=== PATIENT | female | born 1985 | race Caucasian/White ===

== ENCOUNTER → 2016-06-21 | Outpatient (CLI) | payer BC, OTHER ==
[~2016-06-21] MED LIST: ALBU20IN INH; IBUP80TA PO; LIDOCAINE 2% INJ 100 MG/5 ML SDV (FOR ANES.) As Ordered ONE; PERCOCET PO; PRE-TAB3 PO; PROPOFOL 200 MG/20 ML VIAL As Ordered ONE; SPRI28TA PO
[2016-06-21] MEDS: LR 1,000 ML IV SCH ×2 (07:20→07:21)
--- NOTE | 2016-06-21 08:04 | ROOR ---
Patient Name: Jayne Llamas Procedure Date: 06/21/2016 7:35 AM Date of : 1985 Age: 30 Room: [facility] Gender: Female Note Status: Finalized Procedure: Upper GI endoscopy Indications: Epigastric abdominal pain, Suspected esophageal reflux Providers: Corby Larsen MD Referring MD: Nancy Gomez DO Requesting Provider: Medicines: Monitored Anesthesia Care Complications: No immediate complications. Procedure: Pre-Anesthesia Assessment: - Prior to the procedure, a History and Physical was performed, and patient medications and allergies were reviewed. The patient is competent. The risks and benefits of the procedure and the sedation options and risks were discussed with the patient. All questions were answered and informed consent was obtained. Patient identification and proposed procedure were verified by the physician, the nurse and the electrical products engineer in the procedure room. Mental Status Examination: alert and oriented. Airway Examination: normal oropharyngeal airway and neck mobility. CV Examination: regular rate and rhythm. Prophylactic Antibiotics: The patient does not require prophylactic antibiotics. Prior Anticoagulants: The patient has taken no previous anticoagulant or antiplatelet agents. ASA Grade Assessment: II - A patient with mild systemic disease. After reviewing the risks and benefits, the patient was deemed in satisfactory condition to undergo the procedure. The anesthesia plan was to use monitored anesthesia care (MAC). Immediately prior to administration of medications, the patient was re-assessed for adequacy to receive sedatives. The heart rate, respiratory rate, oxygen saturations, blood pressure, adequacy of pulmonary ventilation, and response to care were monitored throughout the procedure. The physical status of the patient was re-assessed after the procedure. The Endoscope was introduced through the mouth, and advanced to the second part of duodenum. The upper GI endoscopy was accomplished without difficulty. The patient tolerated the procedure well. Findings: The examined esophagus was normal. Localized mild inflammation characterized by an erosion was found at the gastroesophageal junction. This was a single small spot on one fold at the GE junction A large amount of food (residue) was found in the gastric fundus and in the gastric body. Normal mucosa was found on the lesser curvature of the stomach and in the gastric antrum. The first portion of the duodenum and second portion of the duodenum were normal. Impression: - Normal esophagus. - Esophageal mucosal changes were present, including erosions. Findings are suggestive of acute inflammation. - A large amount of food (residue) in the stomach. - Normal mucosa was found in the lesser curvature and in the antrum. - Normal first portion of the duodenum and second portion of the duodenum. - No specimens collected. Recommendation: - Discharge patient to home. - Resume regular diet. - Continue present medications. - Return to endoscopist in 2 weeks. Corby Larsen MD 06/21/2016 8:03:46 AM Number of Addenda: 0 Note Initiated On: 06/21/2016 7:35 AM Estimated Blood Loss: Estimated blood loss: none.
[2016-06-21 08:25] VITALS: BP 122/58
== END ==
LOC: M OPP 06:50
PROVIDERS: ATTEND Surgery
DX: K22.10 Ulcer of esophagus without bleeding (principal); R10.13 Epigastric pain; R12 Heartburn; K21.9 Gastro-esophageal reflux disease without esophagitis; J45.909 Unspecified asthma, uncomplicated; F17.200 Nicotine dependence, unspecified, uncomplicated; Z88.1 Allergy status to other antibiotic agents; Z91.040 Latex allergy status; Z88.7 Allergy status to serum and vaccine; Z91.011 Allergy to milk products; Z79.899 Other long term (current) drug therapy

== ENCOUNTER 2016-09-01 15:04 | Emergency (ER) | payer BC, OTHER ==
[~2016-09-01] VITALS: Ht 162.6 cm; Wt 104.3 kg
[~2016-09-01 15:04] MED LIST changes: -LIDOCAINE 2% INJ 100 MG/5 ML SDV (FOR ANES.) As Ordered ONE; -PROPOFOL 200 MG/20 ML VIAL As Ordered ONE
[2016-09-01] MEDS ORDERED: ALLE12TA31 PO (15:15)
[2016-09-01] MEDS ORDERED: ONDANSETRON 4MG/2ML VIAL (J2405) IV ONE (16:15)
[2016-09-01] MEDS ORDERED: KETOROLAC 30 MG/ML VIAL (J1885) IV ONE (16:15)
[2016-09-01 16:54] LABS: BASO % 0.4 % (0.0-1.0); EOS # 0.2 K/mm3 (0.0-0.50); EOS % 2.1 % (0.0-3.0); LARGE UNSTAINED CELL # 0.1 K/mm3 (0.0-0.4); LARGE UNSTAINED CELL % 0.9 % (0.0-4.0); LYMPH # 1.8 K/mm3 (1.5-6.5); LYMPH % 19.5 % (24.0-44.0); MEAN CORPUSCULAR HEMOGLOBIN 30.5 pg (27.0-33.0); MEAN CORPUSCULAR HGB CONC 34.3 g/dl (32.0-36.5); MONO # 0.3 K/mm3 (0.0-0.8); MONO % 3.4 % (0.0-5.0); NEUTROPHILS # 6.3 K/mm3 (1.8-7.7); NEUTROPHILS % 73.7 % (36.0-66.0); PLATELET COUNT, AUTOMATED 219 k/mm3 (150-450); RED CELL DISTRIBUTION WIDTH 12.4 % (11.5-14.5); WHITE BLOOD COUNT 8.6 K/mm3 (4.0-10.0)
[2016-09-01] MEDS ORDERED: GASTROGRAFIN SOLUTION 30ML (Q9963) As Ordered ONE (17:09)
[2016-09-01] MEDS ORDERED: GASTROGRAFIN SOLUTION 30ML (Q9963) PO ONE ×2 (17:15→17:45)
[2016-09-01 17:18] LABS: ALBUMIN 3.6 GM/DL (3.2-5.2); ALKALINE PHOSPHATASE 74 U/L (45-117); ALT/SGPT 22 U/L (12-78); AMYLASE 43 U/L (25-115); ANION GAP 10 MEQ/L (8-16); AST/SGOT 11 U/L (15-37); BILIRUBIN,DIRECT 0.1 MG/DL (0.0-0.2); BILIRUBIN,TOTAL 0.4 MG/DL (0.2-1.0); BLOOD UREA NITROGEN 6 MG/DL (7-18); CALCIUM LEVEL 8.7 MG/DL (8.5-10.1); CARBON DIOXIDE LEVEL 24 MEQ/L (21-32); CHLORIDE LEVEL 106 MEQ/L (98-107); CREATININE FOR GFR 0.66 MG/DL (0.55-1.02); GLOMERULAR FILTRATION RATE > 60.0 (>60); GLUCOSE, FASTING 88 MG/DL (70-105); POTASSIUM SERUM 3.7 MEQ/L (3.5-5.1); SODIUM LEVEL 140 MEQ/L (136-145); TOTAL PROTEIN 6.6 GM/DL (6.4-8.2)
--- NOTE | 2016-09-01 17:20 | REP ---
LIMITED ABDOMINAL ULTRASOUND (GALLBLADDER): 09/01/2016: Clinical history: Right upper quadrant pain. Comparison: 10/28/2015. Findings: Liver is homogeneous in echotexture. There is no focal hepatic mass, intrahepatic biliary dilatation or perihepatic ascites. Gallbladder is only partially filled as the patient drank coffee a few hours ago. There is no definite stone, sludge or pericholecystic fluid. No mass and no sonographic Hayden sign present. Common duct is 4.3 mm. Pancreas is limited evaluation due to bowel gas shadowing. Right kidney shows a length 12.2 x 5.6 x 4.2 cm without stone or hydronephrosis. Impression: 1. Liver, gallbladder, visible portion of the pancreas, common duct at 4.3 mm and the right kidney were unremarkable. Nothing acute by ultrasound. Signed by Merlin Prieto MD 09/01/2016 05:27 P
[2016-09-01] MEDS ORDERED: ISOVUE-370 76% 100ML VIAL (Q9967) As Ordered ONE (18:35)
--- NOTE | 2016-09-01 20:00 | REPUSA ---
CT of the abdomen and pelvis with contrast Clinical statement: Pain. Technique: Multiple axial CT images were obtained from the base of the lungs through the floor of the pelvis utilizing 5 mm axial slices after administration of oral and nonionic intravenous contrast. C oronal and sagittal reconstructions were also obtained. Comparison: 07/29/2010. Findings: Chest: The visualized lung bases are clear. Abdomen: The liver, spleen, pancreas, kidneys, gallbladder, and adrenal glands are unremarkable. The aorta is within normal limits. There is no evidence of abdominal lymphadenopathy or ascites. Pelvis: The bowel is unremarkable, with no obstructive or inflammatory changes. The appendix is vaibhav l. The urinary bladder is within normal limits. The other pelvic structures appear grossly intact. Th ere is no evidence of pelvic lymphadenopathy or ascites. Bones: There are no suspicious osseous abnormalities seen. Impression: Unremarkable CT examination of the abdomen and pelvis. No acute findings.
[2016-09-01] MEDS ORDERED: MACR100C3 PO (20:11)
[2016-09-01] MEDS ORDERED: ZOFR4TAB3 PO (20:11)
[2016-09-01 20:18] VITALS: BP 136/79
== END 2016-09-01 20:20 | disposition home or self-care (01) ==
LOC: M ED 16:13
DX: N39.0 Urinary tract infection, site not specified (principal); J45.909 Unspecified asthma, uncomplicated; E73.9 Lactose intolerance, unspecified; Z79.899 Other long term (current) drug therapy; Z91.040 Latex allergy status; Z88.0 Allergy status to penicillin; Z88.7 Allergy status to serum and vaccine
CPT/HCPCS: 74177; 76705; 80048; 80076; 81001; 81025; 82150; 83690; 85025; 86140; 96374; 96375; 99283; J1885; J2405; Q9963; Q9967

== ENCOUNTER → 2016-09-16 | Outpatient (REF) | payer OTHER ==
[~2016-09-16] MED LIST changes: +ALLE12TA31 PO; +MACR100C3 PO; +ZOFR4TAB3 PO
[2016-09-16 12:22] LABS: ALBUMIN 3.6 GM/DL (3.2-5.2); ALBUMIN/GLOBULIN RATIO 1.13 (1.00-1.93); ALKALINE PHOSPHATASE 72 U/L (45-117); ALT/SGPT 37 U/L (12-78); ANION GAP 10 MEQ/L (8-16); AST/SGOT 22 U/L (15-37); BILIRUBIN,TOTAL 0.5 MG/DL (0.2-1.0); BLOOD UREA NITROGEN 6 MG/DL (7-18); CALCIUM LEVEL 8.5 MG/DL (8.5-10.1); CARBON DIOXIDE LEVEL 25 MEQ/L (21-32); CHLORIDE LEVEL 107 MEQ/L (98-107); CHOLESTEROL LEVEL 170 MG/DL (<200); CREATININE FOR GFR 0.67 MG/DL (0.55-1.02); GLOMERULAR FILTRATION RATE > 60.0 (>60); GLUCOSE, FASTING 85 MG/DL (70-105); POTASSIUM SERUM 4.2 MEQ/L (3.5-5.1); SODIUM LEVEL 142 MEQ/L (136-145); TOTAL PROTEIN 6.8 GM/DL (6.4-8.2); TRIGLYCERIDES LEVEL 58 MG/DL (<150)
[2016-09-16 12:24] LABS: VITAMIN B12 LEVEL 188 PG/ML (247-911)
== END ==
LOC: M SFHCPLAZ 07:58
PROVIDERS: ATTEND Family Medicine
DX: E66.9 Obesity, unspecified (principal); E55.9 Vitamin D deficiency, unspecified; E53.8 Deficiency of other specified B group vitamins

== ENCOUNTER → 2016-09-28 | Outpatient (REF) | payer OTHER, BC | LOC: M SFHCPLAZ 15:30 | PROVIDERS: ATTEND Family Medicine | DX: R25.2 Cramp and spasm (principal) ==

== ENCOUNTER → 2016-10-05 | Outpatient (CLI) | payer BC, OTHER ==
--- NOTE | 2016-10-07 17:56 | ECHO ---
DATE OF PROCEDURE: 10/05/2016 REFERRING PHYSICIAN: Dr. Isela Avelar PATIENT LOCATION: Outpatient. REASON FOR ECHOCARDIOGRAM: Heart murmur. 2D MEASUREMENTS: IVS: 1.2 cm LV: 3.7 cm LVPW: 1.2 cm LA: 3.7 cm Aorta: 2.5 cm IVC: 1.5 cm DOPPLER MEASUREMENTS: Peak velocity across the aortic valve: 1.9 m/s Peak velocity across the LVOT: 1.1 m/s Mitral E: 1.0, mitral A: 0.64 with a ratio of 1.7. Maximum tricuspid valve velocity: 2.25 m/s 2D COMMENTS: 1. Normal left ventricular size, wall thickness, and normal left ventricular systolic function. Normal global left ventricular systolic function. Left ventricular systolic ejection fraction is estimated at 65- 70%. 2. The aortic valve appeared to be normal in limited views. Normal mitral valve, tricuspid valve, and pulmonic valve. The proximal artery braches appear to be normal. 3. The inferior vena cava was normal in size, central venous pressure is most likely normal. DOPPLER: Doppler detects mild mitral regurgitation, trace to mild tricuspid regurgitation. The calculated pulmonary artery systolic pressure varies between 25 to 30 mmHg. Assessment of the left ventricular diastolic function was normal. There was mildly increased velocity across the aortic valve but no significant stenosis. IMPRESSION: 1. Normal global left ventricular systolic and diastolic function. 2. Trace to mild mitral regurgitation. 3. Trace to mild tricuspid regurgitation. 4. The velocity across the aortic valve was minimally elevated but no definitive stenosis noted at this present time. This may be responsible to the heart murmur heard on the examination.
== END ==
LOC: M CARPUL 15:12
PROVIDERS: ATTEND Family Medicine
DX: R01.1 Cardiac murmur, unspecified (principal)

== ENCOUNTER → 2016-10-12 | Outpatient (REF) | payer BC, OTHER | LOC: M SFHCPLAZ 15:45 | PROVIDERS: ATTEND Family Medicine | DX: Z20.1 Contact with and (suspected) exposure to tuberculosis (principal) ==

== ENCOUNTER → 2016-12-22 | Outpatient (REF) | payer OTHER ==
[~2016-12-22] MED LIST changes: -MACR100C3 PO; +MACR100C43 PO
== END ==
LOC: M SFHCPLAZ 08:38
PROVIDERS: ATTEND Family Medicine
DX: M25.50 Pain in unspecified joint (principal); E53.8 Deficiency of other specified B group vitamins

== ENCOUNTER → 2017-02-10 | Outpatient (CLI) | payer BC ==
--- NOTE | 2017-02-10 13:02 | REP ---
PELVIC ULTRASOUND: Real-time sonographic evaluation of the pelvis performed utilized transabdominal and endovaginal technique. Urinary bladder is essentially collapsed and empty. Uterus measures 10.0 x 4.0 x 5.2 cm. Endometrial thickness is 8 mm. Right ovary measures 3.3 x 2.3 x 2.3 cm and contains a dominant follicle 1.7 cm in maximum diameter. Left ovary measures 2.8 x 1.5 x 2.3 cm with two follicles, each measuring about 1 cm in diameter. There is no adnexal mass or free fluid. IMPRESSION: Negative pelvic ultrasound as discussed in detail above.
== END ==
LOC: M WHC 10:17
PROVIDERS: ATTEND Advanced Practice Midwife
DX: N94.6 Dysmenorrhea, unspecified (principal)

== ENCOUNTER → 2017-02-24 | Outpatient (REF) | payer OTHER | LOC: M SFHCPLAZ 15:58 | PROVIDERS: ATTEND Family Medicine | DX: N30.00 Acute cystitis without hematuria (principal) ==

== ENCOUNTER → 2017-10-17 | Outpatient (CLI) | payer BC | LOC: M WHC 09:40 | DX: R10.11 Right upper quadrant pain (principal); K82.4 Cholesterolosis of gallbladder | CPT/HCPCS: 76705 ==

== ENCOUNTER → 2017-10-26 | Outpatient (REF) | payer OTHER, BC ==
[2017-10-31 14:16] LABS: HPV HYBRID CAPTURE II Negative (Negative)
== END ==
LOC: M LAB REF 19:25
DX: Z01.419 Encounter for gynecological examination (general) (routine) without abnormal findings (principal); Z11.51 Encounter for screening for human papillomavirus (HPV)

== ENCOUNTER → 2017-10-31 | Outpatient (REF) | payer OTHER ==
[2017-10-31 09:53] LABS: BASO % 0.6 % (0.0-1.0); EOS # 0.1 10^3/uL (0.0-0.50); HEMATOCRIT 44.6 % (36.0-47.0); IMMATURE GRANULOCYTE % 0.3 % (0-3.0); LYMPH # 2.1 10^3/uL (1.5-4.5); LYMPH % 30.4 % (24.0-44.0); MEAN CORPUSCULAR HEMOGLOBIN 30.3 pg (27.0-33.0); MEAN CORPUSCULAR HGB CONC 33.6 g/dl (32.0-36.5); MEAN CORPUSCULAR VOLUME 90.1 fl (80.0-96.0); MONO # 0.5 10^3/uL (0.0-0.8); MONO % 6.6 % (0.0-5.0); NEUTROPHILS # 4.3 10^3/uL (1.8-7.7); NEUTROPHILS % 61.1 % (36.0-66.0); PLATELET COUNT, AUTOMATED 257 10^3/uL (150-450); RED BLOOD COUNT 4.95 10^6/uL (4.00-5.40); RED CELL DISTRIBUTION WIDTH 12.3 % (11.5-14.5)
[2017-10-31 10:24] LABS: CPK CREATINE PHOSPHOKINASE 108 U/L (26-192)
[2017-10-31 10:24] LABS: C REACTIVE PROTEIN QUANTITATIV 0.57 MG/DL (0.00-0.30)
[2017-10-31 10:40] LABS: ERYTHROCYTE SEDIMENTATION RATE 5 mm/hr (0-20)
== END ==
LOC: M SFHCPLAZ 09:06
DX: M54.2 Cervicalgia (principal); R22.1 Localized swelling, mass and lump, neck

== ENCOUNTER → 2017-11-06 | Outpatient (REF) | payer OTHER ==
[2017-11-06 17:47] LABS: ANTI-STREPTOLYSIN O QUANT 29.9 IU/ML (<214.0)
[2017-11-06 17:47] LABS: C REACTIVE PROTEIN QUANTITATIV 0.43 MG/DL (0.00-0.30)
[2017-11-09 00:07] LABS: ANA (HEP2) Negative (.); Lyme Disease IgG/IgM Antibodie <0.91 ISR (0.00-0.90); Lyme Disease IgM Ab Quantitati <0.80 index (0.00-0.79)
== END ==
LOC: M SFHCPLAZ 13:48
DX: M79.3 Panniculitis, unspecified (principal)

== ENCOUNTER → 2017-11-15 | Outpatient (REF) | payer OTHER ==
[2017-11-15 13:11] LABS: 1 HR GLUCOSE 116 MG/DL (LESS THAN 199)
[2017-11-15 13:12] LABS: 2 HR GLUCOSE 102 MG/DL (LESS THAN 140)
[2017-11-15 13:15] LABS: GLUCOSE, FASTING 87 MG/DL (70-100)
[2017-11-18 00:08] LABS: INSULIN FREE 11 uU/mL (.); INSULIN TOTAL2 11 uU/mL (.)
== END ==
LOC: M LABDRAWP 11:38
DX: R63.5 Abnormal weight gain (principal)
CPT/HCPCS: 82951

== ENCOUNTER → 2017-11-24 | Outpatient (CLI) | payer BC, OTHER ==
[~2017-11-24] MED LIST changes: -ALBU20IN INH; -ALLE12TA31 PO; -IBUP80TA PO; -MACR100C43 PO; -PERCOCET PO; -PRE-TAB3 PO; +PROHANCE 279.3MG/ML 15ML VIAL (A9576) As Ordered; +PROHANCE 279.3MG/ML 5ML VIAL (A9576) As Ordered; -SPRI28TA PO; -ZOFR4TAB3 PO
== END ==
LOC: M RAD 07:31
DX: R42 Dizziness and giddiness (principal); G93.9 Disorder of brain, unspecified
CPT/HCPCS: A9576

== ENCOUNTER → 2017-11-30 | Outpatient (CLI) | payer BC, OTHER ==
[2017-11-30 21:02] LABS: RHEUMATOID FACTOR QUANT < 10.0 IU/ML (<15.0)
[2017-11-30 21:43] LABS: ERYTHROCYTE SEDIMENTATION RATE 6 mm/hr (0-20)
[2017-11-30 22:28] LABS: FOLATE 23.2 NG/ML (>5.4)
[2017-11-30 22:28] LABS: VITAMIN B12 LEVEL 476 PG/ML (247-911)
[2017-12-05 12:01] LABS: DRVV SCREEN 39.4 SEC; PTT LUPUS TYPE ANTICOAG SCREEN 0.9 (0-1.2)
[2017-12-07 00:20] LABS: ANCA-ATYPICAL <1:20 titer (Neg:<1:20); ANTINUCLEAR ANTIBODIES DIRECT Negative (Negative); CARDIOLIPIN IGA ANTIBODY <9 APL U/mL (0-11); CARDIOLIPIN IGG ANTIBODY <9 GPL U/mL (0-14); CARDIOLIPIN IGM ANTIBODY 11 MPL U/mL (0-12); CYTOPLASMIC NEUTROP AB ANCA-C <1:20 titer (Neg:<1:20); PERINUCLEAR AB ANCA-P <1:20 titer (Neg:<1:20); SJOGREN'S ANTI SS-A <0.2 AI (0.0-0.9); SJOGREN'S ANTI SS-B <0.2 AI (0.0-0.9)
[2017-12-08 11:32] LABS: ANGIOTENSIN 1 CONVERTING ENZYM 40 U/L
[2017-12-08 13:34] LABS: HERPES ZOSTER, VARICELLA IgG 802 index (Immune >165)
[2017-12-08 13:34] LABS: JC VIRUS DNA PCR WHOLE BLOOD Negative (Negative)
== END ==
LOC: M WUC 16:58
DX: G35 Multiple sclerosis (principal)
CPT/HCPCS: 82746

== ENCOUNTER → 2017-12-29 | Outpatient (CLI) | payer BC, OTHER ==
[~2017-12-29] MED LIST changes: +E-Z-GAS II EFFERVESCENT PACKET (SODIUM BICARB./CITRIC ACID/SIMETHICONE) As Ordered; +E-Z-HD 98% w/w 340GM SUSP BTL As Ordered; +E-Z-PAQUE 96% w/w SUSP 176GM BTL As Ordered; -PROHANCE 279.3MG/ML 15ML VIAL (A9576) As Ordered; -PROHANCE 279.3MG/ML 5ML VIAL (A9576) As Ordered
== END ==
LOC: M RAD 10:06
DX: K21.9 Gastro-esophageal reflux disease without esophagitis (principal)
CPT/HCPCS: 74241

== ENCOUNTER → 2018-01-03 | Outpatient (CLI) | payer BC, OTHER ==
[~2018-01-03] MED LIST changes: -E-Z-GAS II EFFERVESCENT PACKET (SODIUM BICARB./CITRIC ACID/SIMETHICONE) As Ordered; -E-Z-HD 98% w/w 340GM SUSP BTL As Ordered; -E-Z-PAQUE 96% w/w SUSP 176GM BTL As Ordered; +LIDOCAINE 1% SDV INJ 30 ML VIAL As Ordered; +MIDAZOLAM INJ 2 MG/2 ML VIAL (J2250) As Ordered; +diphenhydrAMINE INJ 50MG/ML VIAL (J1200) As Ordered; +fentaNYL 100 MCG/2 ML INJECTION (J3010) As Ordered
[2018-01-03 17:24] LABS: CSF RBC < 2 10^3/uL (<2); CSF WBC 8 /uL (0-10)
[2018-01-03 17:25] LABS: APPEARANCE, CSF CLEAR (CLEAR); COLOR, CSF COLORLESS (COLORLESS); CSF DIFF IF INDICATED? NO (NO); CSF TUBE# CELL CNT TUBE 3
[2018-01-03 17:41] LABS: CSF TUBE# GLU TUBE 1; CSF TUBE# TP TUBE 1; GLUCOSE CSF 48 MG/DL (40-75); TOTAL PROTEIN,CSF 35.6 MG/DL (15-45)
[2018-01-08 11:00] LABS: OLIGOCLONAL BANDS, CSF Faint bands detected (No Bands)
[2018-01-09 00:06] LABS: IMMUNOGLOBULIN G CSF 7.8 mg/dL (0.0-8.6)
== END ==
LOC: M PAIN 13:00
DX: G35 Multiple sclerosis (principal); L30.9 Dermatitis, unspecified; J45.990 Exercise induced bronchospasm; Z88.1 Allergy status to other antibiotic agents; Z88.7 Allergy status to serum and vaccine; Z88.8 Allergy status to other drugs, medicaments and biological substances; Z91.040 Latex allergy status; Z91.013 Allergy to seafood; Z86.69 Personal history of other diseases of the nervous system and sense organs
CPT/HCPCS: J1200

== ENCOUNTER 2018-01-04 19:48 | Emergency (ER) | payer BC, OTHER ==
[2018-01-04] MEDS: KETOROLAC 30 MG/ML VIAL (J1885) IV (22:01)
[2018-01-04 22:15] LABS: ANION GAP 8 MEQ/L (8-16); BLOOD UREA NITROGEN 7 MG/DL (7-18); C REACTIVE PROTEIN QUANTITATIV 0.46 MG/DL (0.00-0.30); CALCIUM LEVEL 8.7 MG/DL (8.5-10.1); CARBON DIOXIDE LEVEL 26 MEQ/L (21-32); CHLORIDE LEVEL 107 MEQ/L (98-107); CREATININE FOR GFR 0.72 MG/DL (0.55-1.30); GLOMERULAR FILTRATION RATE > 60.0 (>60); GLUCOSE, FASTING 90 MG/DL (70-100); POTASSIUM SERUM 3.9 MEQ/L (3.5-5.1); SODIUM LEVEL 141 MEQ/L (136-145)
[2018-01-04 22:17] LABS: BASO % 0.5 % (0.0-1.0); EOS # 0.1 10^3/uL (0.0-0.50); EOS % 0.7 % (0.0-3.0); HEMATOCRIT 45.8 % (36.0-47.0); HEMOGLOBIN 15.5 g/dl (12.0-15.5); IMMATURE GRANULOCYTE % 0.2 % (0-3.0); LYMPH # 3.3 10^3/uL (1.5-4.5); LYMPH % 39.2 % (24.0-44.0); MEAN CORPUSCULAR HEMOGLOBIN 30.1 pg (27.0-33.0); MEAN CORPUSCULAR HGB CONC 33.8 g/dl (32.0-36.5); MEAN CORPUSCULAR VOLUME 88.9 fl (80.0-96.0); MONO # 0.6 10^3/uL (0.0-0.8); MONO % 7.1 % (0.0-5.0); NEUTROPHILS # 4.4 10^3/uL (1.8-7.7); NEUTROPHILS % 52.3 % (36.0-66.0); PLATELET COUNT, AUTOMATED 306 10^3/uL (150-450); RED BLOOD COUNT 5.15 10^6/uL (4.00-5.40); RED CELL DISTRIBUTION WIDTH 11.9 % (11.5-14.5); WHITE BLOOD COUNT 8.3 10^3/uL (4.0-10.0)
[2018-01-04] MEDS ORDERED: ISOVUE-370 76% 100ML VIAL (Q9967) As Ordered (22:17)
[2018-01-04 23:51] LABS: ERYTHROCYTE SEDIMENTATION RATE 8 mm/hr (0-20)
== END 2018-01-05 00:23 | disposition home or self-care (01) ==
LOC: M ED 01-05 00:23
DX: G97.1 Other reaction to spinal and lumbar puncture (principal); M51.27 Other intervertebral disc displacement, lumbosacral region; G35 Multiple sclerosis
CPT/HCPCS: Q9967

== ENCOUNTER → 2018-03-14 | Outpatient (REF) | payer OTHER | LOC: M SFHCPLAZ 15:10 | DX: R35.0 Frequency of micturition (principal) | CPT/HCPCS: 87086 ==

== ENCOUNTER → 2018-06-11 | Outpatient (REF) | payer OTHER ==
[~2018-06-11] MED LIST changes: +ALBU20IN INH; +ALBU83IN INH; +ALLE12TA31 PO; +FLON1SPR; +IBUP80TA PO; -LIDOCAINE 1% SDV INJ 30 ML VIAL As Ordered; +MACR100C43 PO; +METH1TAB40; -MIDAZOLAM INJ 2 MG/2 ML VIAL (J2250) As Ordered; +MULT1TAB18 PO; +PERCOCET PO; +PRE-TAB3 PO; +SPRI28TA PO; +VITATAB11 PO; +ZOFR4TAB14 PO; -diphenhydrAMINE INJ 50MG/ML VIAL (J1200) As Ordered; -fentaNYL 100 MCG/2 ML INJECTION (J3010) As Ordered
[2018-06-11 13:25] LABS: FREE T4 0.98 NG/DL (0.76-1.46); THYROID STIMULATING HORMONE 0.63 uIU/ML (0.358-3.740)
== END ==
LOC: M LABDRAWP 12:11
PROVIDERS: ATTEND Advanced Practice Midwife
DX: N92.0 Excessive and frequent menstruation with regular cycle (principal)

== ENCOUNTER → 2018-06-19 | Outpatient (CLI) | payer BC, OTHER ==
--- NOTE | 2018-06-19 19:23 | REP ---
Pelvic ultrasound including transabdominal, endovaginal and Doppler ultrasound assessment: The bladder is adequately distended. The The uterus is anteverted and normal size measuring 8.9 x 6.2 x 5.5 cm. The endometrium is not thickened measuring 11.6 mm. The myometrium is homogeneous and unremarkable. The right ovary is normal size measuring 3.5 x 2.3 by 2.9 cm. There is no dominant right ovarian mass or cyst. The left ovary is normal size measuring 3.4 x 2.4 x 3.5 cm. There is no dominant left ovarian mass or cyst. There is no free fluid in the pelvis. There is vascular flow in both ovaries. The Doppler resistive index of the parenchymal arteries of the right ovary is 0.42 and of the left ovary is 0.41. Impression: Essentially negative pelvic ultrasound. Electronically Signed by Eric Weeks MD 06/19/2018 07:14 P
== END ==
LOC: M RAD 16:38
PROVIDERS: ATTEND Advanced Practice Midwife
DX: N92.0 Excessive and frequent menstruation with regular cycle (principal)

== ENCOUNTER → 2018-06-30 | Outpatient (CLI) | payer BC, OTHER ==
--- NOTE | 2018-07-01 09:01 | REP ---
LEFT FOOT, FOUR VIEWS: There is no evidence of an acute fracture, dislocation or intrinsic bone disease. IMPRESSION: No fracture or dislocation. Electronically Signed by Eric Alexandre MD 07/01/2018 06:47 P
== END ==
LOC: M WUC 13:59
PROVIDERS: ATTEND Physician Assistant
DX: M79.672 Pain in left foot (principal)

== ENCOUNTER 2018-07-12 11:58 | Inpatient (IN) | payer BC, OTHER ==
[~2018-07-12] VITALS: Ht 162.6 cm; Wt 109.0 kg
[2018-07-12] MEDS ORDERED: CALC600T57 PO (12:14)
[2018-07-12] MEDS ORDERED: ASCO25TA PO (12:15)
--- NOTE | 2018-07-12 12:51 | REP ---
CT Head without contrast HISTORY: Infarction COMPARISON: 01/04/2018 A small area of decreased attenuation is present in the periventricular white matter of the the right temporal lobe. This represents encephalomalacia. There is no intraparenchymal hemorrhage, acute infarct, mass or midline shift. The ventricular system is normal in appearance. There is no extra cerebral collection. There is no fracture. The visualized sinuses are clear. IMPRESSION: Right temporal lobe encephalomalacia. Electronically Signed by Juan A Mckinney MD 07/12/2018 12:43 P
[2018-07-12 13:22] LABS: BASO # 0.1 10^3/uL (0.0-0.2); BASO % 0.7 % (0.0-1.0); EOS # 0.1 10^3/uL (0.0-0.50); EOS % 1.3 % (0.0-3.0); HEMATOCRIT 44.1 % (36.0-47.0); LYMPH # 2.6 10^3/uL (1.5-4.5); MEAN CORPUSCULAR HEMOGLOBIN 30.1 pg (27.0-33.0); MEAN CORPUSCULAR VOLUME 88.6 fl (80.0-96.0); MONO # 0.6 10^3/uL (0.0-0.8); MONO % 6.7 % (0.0-5.0); NEUTROPHILS # 5.2 10^3/uL (1.8-7.7); NEUTROPHILS % 61.1 % (36.0-66.0); PLATELET COUNT, AUTOMATED 266 10^3/uL (150-450); RED BLOOD COUNT 4.98 10^6/uL (4.00-5.40); WHITE BLOOD COUNT 8.5 10^3/uL (4.0-10.0)
[2018-07-12 13:52] LABS: INR 0.93; PROTHROMBIN TIME 12.6 SECONDS (12.1-14.4)
[2018-07-12 13:53] LABS: PARTIAL THROMBOPLASTIN TIME 28.1 SECONDS (25.4-37.6)
--- NOTE | 2018-07-12 13:54 | REP ---
AP PORTABLE CHEST: 07/12/2018. COMPARISON: CT angio chest 10/30/2017, chest x-ray 05/15/2007. CLINICAL HISTORY: CVA. FINDINGS: Lungs are well inflated and without infiltrate, effusion, atelectasis, or mass. The heart, mediastinal and hilar contours are grossly unremarkable. Airway and aorta unremarkable. No free air. IMPRESSION: 1. Negative portable chest. Electronically Signed by Merlin Prieto MD 07/12/2018 07:29 P
[2018-07-12 13:59] LABS: BLOOD UREA NITROGEN 9 MG/DL (7-18); CALCIUM LEVEL 9.1 MG/DL (8.5-10.1); CARBON DIOXIDE LEVEL 28 MEQ/L (21-32); CHLORIDE LEVEL 103 MEQ/L (98-107); CPK CREATINE PHOSPHOKINASE 113 U/L (26-192); GLOMERULAR FILTRATION RATE > 60.0 (>60); GLUCOSE, FASTING 81 MG/DL (70-100); POTASSIUM SERUM 3.8 MEQ/L (3.5-5.1); SODIUM LEVEL 139 MEQ/L (136-145)
[2018-07-12 14:00] LABS: CK-MB VALUE MASS < 1.0 NG/ML (<3.6); MB/CK RELATIVE INDEX 0.88 (< OR =4); TROPONIN I < 0.02 NG/ML (< 0.10)
[2018-07-12] MEDS ORDERED: ALPRAZolam 0.5 MG TAB PO ONE (14:45)
[2018-07-12] MEDS ORDERED: methylPREDNISolone INJ 125 MG/2 ML VIAL (J2930) IV ONE (14:45)
[2018-07-12] MEDS ORDERED: ACETAMINOPHEN TAB 650MG DOSE (2X325MG) PO ONE (14:45)
[2018-07-12] MEDS ORDERED: methylPREDNISolone 1,000 MG, VIAL MATE ADAPTER 1 EACH in D5W 250 ML IV ONE (15:00)
[2018-07-12] MEDS ORDERED: PROHANCE 279.3MG/ML 5ML VIAL (A9576) As Ordered ONE (17:48)
[2018-07-12] MEDS ORDERED: PROHANCE 279.3MG/ML 15ML VIAL (A9576) As Ordered ONE (17:49)
--- NOTE | 2018-07-12 18:11 | ECGEPIP ---
Stationary ECG Study [facility] - ED Test Date: 2018-07-12 Pat Name: MAX GRIER Department: Room: - Gender: F Clutch Specialist: sb : 1985 Requested By: CLARITA Allen Order Number: [id number] Reading MD: Dieog Reeves Measurements Intervals [place] Rate: 87 P: 53 CA: 111 QRS: 44 QRSD: 96 T: 16 QT: 377 QTc: 456 Interpretive Statements SINUS RHYTHM WITH SINUS ARRHYTHMIA WITH SHORT CA INTERVAL INCOMPLETE RIGHT BUNDLE BRANCH BLOCK SIMILAR TO 10/30/17 Electronically Signed On 07-12-2018 18:10:57 EST by Diego eReves
--- NOTE | 2018-07-12 18:52 | REP ---
MR BRAIN WITHOUT AND WITH CONTRAST: HISTORY: Multiple sclerosis. CONTRAST: ProHance 20 mL COMPARISON: 11/24/2017. Multiple small areas of increased signal intensity on T2-weighted images are present in the periventricular and subcortical white matter. Additional areas of increased signal intensity are present in the corpus callosum and right cerebellum. These are unchanged compared to the previous study. There are no new areas of abnormal signal intensity. There is no intraparenchymal hemorrhage, infarct, mass or midline shift. The sella turcica is partially empty. There is no abnormal enhancement. The ventricular system is normal in appearance. There is no extracerebral collection. The sinuses are clear. IMPRESSION: The above findings are consistent with multiple sclerosis that are unchanged compared to the previous study. Electronically Signed by Juan A Mckinney MD 07/12/2018 06:54 P
[2018-07-12] MEDS ORDERED: ONDANSETRON 4MG/2ML VIAL (J2405) IV ONE (19:00)
[2018-07-12] MEDS ORDERED: KETOROLAC 30 MG/ML VIAL (J1885) IV ONE (19:00)
[2018-07-12] MEDS ORDERED: MOME50SP2 (20:08)
[2018-07-12] MEDS ORDERED: METH1TAB40 PO (20:08)
[2018-07-12] MEDS ORDERED: CALCCHW18 PO (20:08)
[2018-07-12] MEDS ORDERED: VITACHTA PO (20:08)
[2018-07-12] MEDS ORDERED: [UNRECOGNIZED DRUG - OTHER] PO (20:08)
[2018-07-12] MEDS ORDERED: PROAAER10 INH (20:08)
[2018-07-12] MEDS ORDERED: COPA1INJ SC (20:08)
[2018-07-12] MEDS ORDERED: [UNRECOGNIZED DRUG - CODE] SL (20:08)
[2018-07-12] MEDS ORDERED: [UNRECOGNIZED DRUG - OTHER] PO (20:11)
[2018-07-12] MEDS ORDERED: ALBUTEROL SULFATE 2.5 MG/0.5 ML INH NEB SOLN INH PRN (21:15)
[2018-07-12] MEDS ORDERED: ONDANSETRON 4 MG TAB (S0181) PO PRN (21:15)
[2018-07-12] MEDS ORDERED: ALBUTEROL 90 MCG/ACT 8GM HFA INHALER INH PRN (21:15)
[2018-07-12] MEDS ORDERED: METHOCARBAMOL 500 MG TAB PO PRN (21:15)
--- NOTE | 2018-07-12 21:36 | HPEPDOC ---
[facility] Medical History & Physical Date of Admission Jul 12, 2018 Primary Care Physician: PAUL HALL MD Attending Physician: BEATRICE GREGORY MD History and Physical CHIEF COMPLAINT: Right sided lose of peripheral vision and dizziness HISTORY OF PRESENT ILLNESS: Patient is 32-year-old female, history of asthma, GERD, sludge, gallbladder, recently diagnosed multiple sclerosis on 11/27/2017, currently managed with copaxone subcutaneous injections every 3 weeks. She follows with Dr. Chawla at [facility]. She also follows with Dr. Lyons locally for any neurological emergencies. She presents to the ER today complaining of right sided peripheral vision loss and dizziness. Patient stated this started at 11:00 this a.m. She denies any prior trauma, denies any headaches before, denies any other neurological symptoms. During her evaluation in the ED, she still complains of right sided peripheral vision loss, with headache, dizziness is exacerbated by movement. She also complained of nausea. Initial evaluation showed unremarkable labs. MRI of the brain was consistent with multiple sclerosis. Dr. Lyons was consulted by ED provider. Hospitalist team was called for admission for multiple sclerosis flare up. PAST MEDICAL HISTORY: Multiple sclerosis Asthma Eczema GERD Sludge in gallbladder. Interstitial cystitis PAST SURGICAL HISTORY: Tonsillectomy in 1992. Knee arthroscopy. EGD with small bowel biopsy. Lipoma removal from left leg. Plicectomy of the medial plica suprapatellar SOCIAL HISTORY: Lives at home with her , denies cigarettes, occasional alcohol user, denies any illicit drugs FAMILY HISTORY: Father is alive, with migraines and hyperlipidemia, mother is alive with hyperlipidemia, hypertension, siblings have RAIMUDNO and hypertension. ALLERGIES: Please see below. REVIEW OF SYSTEMS: CONSTITUTIONAL: No fevers, denies chills, denies weight loss, denies lethargy HEENT: No rhinorrhea, no itchy eyes, no congesion, CARDIOVASCULAR: No murmurs no palpitations and arrhythmias RESPIRATORY: Not cough, No SOB, no issues to report GASTROINTESTINAL: No nausea, no vomiting, no difficulty swallowing, no pain with eating, no diarrhea HEMATOLOGICAL: No bleeding GENITOURINARY:No Issues HEMATOLOGIC/LYMPHATIC: No swelling NEURO: Admits to right-sided peripheral vision loss, HOME MEDICATIONS: Please see below. PHYSICAL EXAMINATION: VITALS: See Below GENERAL APPEARANCE: Alert no acute distress. SKIN: Warm, well perfused. HEENT: Palate intact, lewis tympanic membrane no bulging, no erythema, Neck supple, no thyromegaly, pupils are round and equally reactive to light, THORAX: Symmetrical. LUNGS: Clear to auscultation bilaterally. HEART: Normal S1, S2. No murmurs, no rubs, no gallops ABDOMEN: Soft. No masses. Bowel sounds are present. EXTREMITIES: Moves all extremities equally. No gross deformities. PULSES: 2+ upper and lower extremity . NEURO: Sensation intact in bilateral upper and lower extremity, cranial nerves 3 through XII intact, appropriate [id number], states she has poor vision out of her right periphery, LABORATORY DATA: See below. IMAGING: BRAIN MRI: Multiple small areas of increased signal intensity on T2-weighted images are present in the periventricular and subcortical white matter. Additional areas of increased signal intensity are present in the corpus callosum and right cerebellum. These are unchanged compared to the previous study. There are no new areas of abnormal signal intensity. There is no intraparenchymal hemorrhage, infarct, mass or midline shift. The sella turcica is partially empty. There is no abnormal enhancement. The ventricular system is normal in appearance. There is no extracerebral collection. The sinuses are clear. The above findings are consistent with multiple sclerosis that are unchanged compared to the previous study. CHEST XRAY: Negative portable chest HEAD CT: Right temporal lobe encephalomalacia MICROBIOLOGY: Please see below. ASSESSMENT/PLAN: A 32-year-old female presenting with right-sided peripheral vision loss, accompanied by dizziness. She be admitted for multiple sclerosis flare up. Neurology has been consulted. Neurology has recommended 3 day course of IV Solu-Medrol 1000 mg daily. -Neurology consult, Dr. Serena MCRAE Continue home medication Asthma Continue home medication DVT prophylaxis Lovenox Vital Signs Vital Signs Date Time Temp Pulse Resp B/P (MAP) Pulse Ox O2 Delivery O2 Flow Rate FiO2 07/12/18 20:14 98.4 95 20 118/77 (91) 95 Room Air Laboratory Data Labs 24H Laboratory Tests 2 07/12/18 13:08: Immature Granulocyte % (Auto) 0.2, White Blood Count 8.5, Red Blood Count 4.98, Hemoglobin 15.0, Hematocrit 44.1, Mean Corpuscular Volume 88.6, Mean Corpuscular Hemoglobin 30.1, Mean Corpuscular Hemoglobin Concent 34.0, Red Cell Distribution Width 12.0, Platelet Count 266, Neutrophils (%) (Auto) 61.1, Lymphocytes (%) (Auto) 30.0, Monocytes (%) (Auto) 6.7H, Eosinophils (%) (Auto) 1.3, Basophils (%) (Auto) 0.7, Neutrophils # (Auto) 5.2, Lymphocytes # (Auto) 2.6, Monocytes # (Auto) 0.6, Eosinophils # (Auto) 0.1, Basophils # (Auto) 0.1, Nucleated Red Blood Cells % (auto) 0.0, Anion Gap 8, Glomerular Filtration Rate > 60.0, Blood Urea Nitrogen 9, Creatinine 0.60, Sodium Level 139, Potassium Level 3.8, Chloride Level 103, Carbon Dioxide Level 28, Calcium Level 9.1, Total Creatine Kinase 113, Creatine Kinase MB < 1.0, Creatine Kinase MB Relative Index 0.88, Troponin I < 0.02 07/12/18 13:28: Prothrombin Time 12.6, Prothromb Time International Ratio 0.93, Activated Partial Thromboplast Time 28.1 CBC/BMP Laboratory Tests 07/12/18 13:08 Red Blood Count 4.98, Mean Corpuscular Volume 88.6, Mean Corpuscular Hemoglobin 30.1, Mean Corpuscular Hemoglobin Concent 34.0, Red Cell Distribution Width 12 .0, Neutrophils (%) (Auto) 61.1, Lymphocytes (%) (Auto) 30.0, Monocytes (%) (Auto) 6.7 H, Eosinophils (%) (Auto) 1.3, Basophils (%) (Auto) 0.7, Neutrophils # (Auto) 5.2, Lymphocytes # (Auto) 2.6, Monocytes # (Auto) 0.6, Eosinophils # (Auto) 0.1, Basophils # (Auto) 0.1, Calcium Level 9.1, Total Creatine Kinase 113 Home Medications Scheduled (Calcium Gummies 250-100-500 mg-Unit) 1 Chw Chw, 1 CHW PO DAILY (Mometasone Furoate) 50 Mcg/Act Spr, 2 SPRAYS NA DAILY Ascorbic Acid (Ra Vitamin C/Acerola) 500 Mg Chw, 500 MG PO DAILY Glatiramer Acetate (Copaxone) 40 Mg/Ml Inj, 40 MG SC 3XW TAKES MONDAY, MONDAY AND MONDAY AT [facility]; AT LEAST 48 HOURS BETWEEN DOSES Multivitamins Chewable *[facility] STOCKED* (Animal Shapes with C & FA *[facility] STOCKED*) 1 Tab Chew, 2 TAB PO DAILY [B Complex Gummies] , 1 CHEW PO DAILY Scheduled PRN Albuterol Sulfate (Albuterol Sulfate) 2.5 Mg/3 Ml Nebu, 2.5 MG INH Q4H PRN for SHORTNESS OF BREATH Albuterol Sulfate (Proair Hfa) 108 Mcg/Act Aer, 2 PUFF INH Q4H PRN for SHORTNESS OF BREATH Methocarbamol (Methocarbamol) 500 Mg Tab, 500 MG PO QHS PRN for MUSCLE SPASMS CAN TAKE SECOND TABLET IF NEEDED Allergies Coded Allergies: Latex (Unverified Allergy, Intermediate, RASH/ITCHING, 08/21/12) Sulfamethoxazole w/Trimethoprim (Verified Allergy, Intermediate, VOMITING STOMACH PAIN, 06/21/16) Shrimp (Verified Allergy, Mild, 07/12/18) throat tingles, scratches Tuberculin (Verified Allergy, Mild, 10/30/17) Lactose (Verified Allergy, Unknown, 09/01/16) GME ATTESTATION GME ATTESTATION My faculty preceptor for this patient encounter was physically present during the encounter and was fully available. All aspects of the patient interview, examination, medical decision making process, and medical care plan development were reviewed and approved by the faculty preceptor. The faculty preceptor is aware and concurs with the plan as stated in the body of this note and will attest to such by his/her cosignature. MAC JARRETT DO Jul 12, 2018 21:36
[2018-07-12 22:20] VITALS: BP 129/60
[2018-07-13 06:00] VITALS: BP 132/59
[2018-07-13 06:12] LABS: HEMOGLOBIN 14.4 g/dl (12.0-15.5); MEAN CORPUSCULAR HEMOGLOBIN 30.1 pg (27.0-33.0); MEAN CORPUSCULAR HGB CONC 33.5 g/dl (32.0-36.5); MEAN CORPUSCULAR VOLUME 89.8 fl (80.0-96.0); PLATELET COUNT, AUTOMATED 299 10^3/uL (150-450); RED BLOOD COUNT 4.79 10^6/uL (4.00-5.40); WHITE BLOOD COUNT 12.9 10^3/uL (4.0-10.0)
[2018-07-13 06:34] LABS: BLOOD UREA NITROGEN 11 MG/DL (7-18); CALCIUM LEVEL 8.8 MG/DL (8.5-10.1); CARBON DIOXIDE LEVEL 25 MEQ/L (21-32); CHLORIDE LEVEL 107 MEQ/L (98-107); CREATININE FOR GFR 0.62 MG/DL (0.55-1.30); GLOMERULAR FILTRATION RATE > 60.0 (>60); GLUCOSE, FASTING 141 MG/DL (70-100); POTASSIUM SERUM 4.2 MEQ/L (3.5-5.1); SODIUM LEVEL 138 MEQ/L (136-145)
[2018-07-13] MEDS: ENOXAPARIN 40 MG/0.4 ML SYRINGE (J1650) SC SCH (08:28)
[2018-07-13] MEDS: methylPREDNISolone 1,000 MG, VIAL MATE ADAPTER 1 EACH in D5W 250 ML IV SCH (08:41)
[2018-07-13] MEDS: PANTOPRAZOLE 40MG TAB (PROTONIX) PO SCH (08:41)
[2018-07-13] MEDS ORDERED: methylPREDNISolone INJ 125 MG/2 ML VIAL (J2930) IV SCH (09:00)
[2018-07-13] MEDS: MULTIVITAMINS CHILDREN'S CHEWABLE TABLET PO SCH (10:55)
--- NOTE | 2018-07-13 11:02 | IPNPDOC ---
Text Note Date of Service The patient was seen on 07/13/18. NOTE S: Pt examined at bedside. Is feeling slightly better today and no longer having right-sided headache, and peripheral vision is improving. No other complaints or issues overnight. PE: General: NAD, A&O, resting comfortably HEENT: NCAT, EOMI, anicteric sclera, MMM CV: RRR, no murmurs RESP: CTAB, no w/r/r/ ABD: soft, NT, ND. Benign EXTREMITIES: 2+ radial pulses b/l, able to move all extremities NEURO: no deficits or acute changes. Motor, sensation, strength intact throughou t. No facial asymmetry, droop, slurred speech, tremor, local weakness A/P: Multiple sclerosis flareup Neurology is consulted, appreciate Dr. Lyons's input. Is on Day 2/3 of high-dose IV steroids with clinical improvement Continue on neuro checks Leukocytosis WBC 13, likely reactionary to high-dose steroids. Afebrile, no infectious source suspected. Monitor GERD Continue on by mouth Protonix Asthma stable DVT PPX: Lovenox SC DISPOSITION: Pending clinical improvement. Likely d/c in 1-2 days. VS,Fishbone, I+O VS, Fishbone, I+O Laboratory Tests 07/12/18 13:08 Red Blood Count 4.98, Mean Corpuscular Volume 88.6, Mean Corpuscular Hemoglobin 30.1, Mean Corpuscular Hemoglobin Concent 34.0, Red Cell Distribution Width 12.0, Neutrophils (%) (Auto) 61.1, Lymphocytes (%) (Auto) 30.0, Monocytes (%) (Auto) 6.7 H, Eosinophils (%) (Auto) 1.3, Basophils (%) (Auto) 0.7, Neutrophils # (Auto) 5.2, Lymphocytes # (Auto) 2.6, Monocytes # (Auto) 0.6, Eosinophils # (Auto) 0.1, Basophils # (Auto) 0.1, Calcium Level 9.1, Total Creatine Kinase 113 07/13/18 05:28 Red Blood Count 4.79, Mean Corpuscular Volume 89.8, Mean Corpuscular Hemoglobin 30.1, Mean Corpuscular Hemoglobin Concent 33.5, Red Cell Distribution Width 12.0, Calcium Level 8.8 Vital Signs Date Time Temp Pulse Resp B/P (MAP) Pulse Ox O2 Delivery O2 Flow Rate FiO2 07/13/18 06:00 98.7 104 18 132/59 (83) 95 07/12/18 22:15 Room Air I&O- Last 24 Hours up to 6 AM 07/13/18 06:00 Intake Total 630 ml Output Total 900 ml Balance -270 ml GME ATTESTATION GME ATTESTATION My faculty preceptor for this patient encounter was physically present during the encounter and was fully available. All aspects of the patient interview, examination, medical decision making process, and medical care plan development were reviewed and approved by the faculty preceptor. The faculty preceptor is aware and concurs with the plan as stated in the body of this note and will attest to such by his/her cosignature. RISHABH RUTHERFORD DO Jul 13, 2018 11:02
[2018-07-13] MEDS: ACETAMINOPHEN TAB 650MG DOSE (2X325MG) PO PRN ×2 (11:14→18:21)
[2018-07-13 14:00] VITALS: BP 125/59
[2018-07-13] MEDS ORDERED: COPAXONE 40 MG SQ SCH (21:00)
[2018-07-13 22:00] VITALS: BP 110/62
[2018-07-14] VITALS: BP 110/62
[2018-07-14 06:00] VITALS: BP 132/59
[2018-07-14 06:28] LABS: HEMATOCRIT 39.4 % (36.0-47.0); HEMOGLOBIN 13.2 g/dl (12.0-15.5); MEAN CORPUSCULAR HEMOGLOBIN 30.3 pg (27.0-33.0); MEAN CORPUSCULAR HGB CONC 33.5 g/dl (32.0-36.5); MEAN CORPUSCULAR VOLUME 90.6 fl (80.0-96.0); PLATELET COUNT, AUTOMATED 293 10^3/uL (150-450); RED BLOOD COUNT 4.35 10^6/uL (4.00-5.40); WHITE BLOOD COUNT 23.8 10^3/uL (4.0-10.0)
[2018-07-14 06:50] LABS: BLOOD UREA NITROGEN 12 MG/DL (7-18); CALCIUM LEVEL 8.1 MG/DL (8.5-10.1); CARBON DIOXIDE LEVEL 27 MEQ/L (21-32); CHLORIDE LEVEL 109 MEQ/L (98-107); CREATININE FOR GFR 0.66 MG/DL (0.55-1.30); GLOMERULAR FILTRATION RATE > 60.0 (>60); GLUCOSE, FASTING 141 MG/DL (70-100); SODIUM LEVEL 142 MEQ/L (136-145)
--- NOTE | 2018-07-14 08:09 | CR ---
DATE OF CONSULTATION: 07/13/2018 REFERRING PHYSICIAN: Dr. Kristy Britton. REASON FOR CONSULTATION: Headache and right-sided peripheral vision loss. HISTORY OF PRESENT ILLNESS: Jayne Llamas is a 32-year-old woman with history of asthma, acid reflux, cholecystectomy, multiple sclerosis, who follows with [facility] in [place]. The patient states that she was at work and was putting the patient in the room when she suddenly felt that she was unable to see on right ultra visual field. She felt slightly dizzy. This started around 11:00 a.m. She was able to see straight but her vision appeared to have been reduced to a C-shaped visual field in the right eye. She could not see in periphery of her right eye on the outer side. She also felt right temporal and frontal 3/10 headache. She felt heaviness of her right eyelid. She did not feel much in the eye itself. She denies any seizures, dysphagia, dysarthria, diplopia, urinary incontinence, falls or loss of consciousness. The patient has been taking Copaxone and was seen at [facility] last week and was told that she was doing very well. The patient stated that she has headaches or migraines four - five times a year. They are 8/10 in severity, pressure and pounding in character. Tylenol or ibuprofen usually work well for her headaches and migraines. PAST MEDICAL HISTORY: Multiple sclerosis. Asthma. Eczema. Acid reflux. Interstitial cystitis. Tonsillectomy. Arthroscopy Esophagogastroduodenoscopy (EGD) for small bowel biopsy. section. Lipoma. SOCIAL HISTORY: She lives with her . She denies smoking or illicit drugs. She drinks alcohol socially. FAMILY HISTORY: Father with history of migraine and dyslipidemia and siblings have hypertension and sleep apnea. REVIEW OF SYSTEMS: All systems were reviewed and found to be noncontributory except as mentioned in the history present illness. PHYSICAL EXAMINATION: Temperature 98.4, pulse 95, respiratory rate 20, blood pressure 118/77, 95% saturation on room air. Heart: Regular rate and rhythm. Lungs: Clear to auscultation. Abdomen: Soft, nontender, nondistended. No pedal edema. No musculoskeletal abnormalities. No rash. No signs of meningeal irritation. No dysmetria or tremor. The patient is awake, alert, oriented to place, person and time. Normal speech comprehension and repetition. Extraocular muscles intact. No facial weakness. Tongue and uvula are midline. 5/5 strength in all four extremities. Deep tendon reflexes are 2+ throughout. Normal sensation. Gait is normal. DIAGNOSTIC STUDIES: MRI scan of brain with and without contrast did not show any change from her last scan in 2018. There were no contrast enhancing lesions. Optic nerves were within normal limits. CURRENT MEDICATIONS: - Copaxone 40 mg subcutaneous three times a week - multivitamin - albuterol inhaler - methocarbamol as needed - calcium ALLERGIES: LATEX, SULFA, shrimp, PPD lactose. ASSESSMENT: 1. Migraine with aura. 2. There is concern for right optic neuritis. 3. History of relapsing remitting multiple sclerosis PLAN: 1. Solu-Medrol 1000 mg IV daily for 3 days. 2. Followup with [facility] in [place], [place]. 3. Ibuprofen 600 mg by mouth twice a day as needed for headaches. MTDD
[2018-07-14] MEDS: ENOXAPARIN 40 MG/0.4 ML SYRINGE (J1650) SC SCH (09:00)
[2018-07-14] MEDS: MULTIVITAMINS CHILDREN'S CHEWABLE TABLET PO SCH (09:55)
[2018-07-14] MEDS: PANTOPRAZOLE 40MG TAB (PROTONIX) PO SCH (09:56)
[2018-07-14] MEDS: methylPREDNISolone 1,000 MG, VIAL MATE ADAPTER 1 EACH in D5W 250 ML IV SCH (09:56)
--- NOTE | 2018-07-14 16:07 | DS.PDOC ---
Discharge Summary General Date of Admission Jul 12, 2018 at 20:25 Date of Discharge 07/14/2018 Primary Care Physician: PAUL HALL MD Attending Physician: JOSELIN MURRY MD Specialist/Consultants Involve: LORIE MANUEL MD Discharge Summary PROCEDURES PERFORMED DURING STAY: None. ADMITTING DIAGNOSES: 1. MS flareup DISCHARGE DIAGNOSES: 1. MS flareup 2. Leukocytosis Migraine headaches Asthma GERD COMPLICATIONS/CHIEF COMPLAINT: Multiple Sclerosis Exacerbation. HISTORY OF PRESENT ILLNESS: Pt is a 32-year-old female with a history of multiple sclerosis who experienced sudden onset of loss of peripheral vision of the right eye while at work. She denies ever expressing this before. "Blackout of the side of the right eye "was also associated with headache in the right periorbital region, along with lightheadedness and some nausea. HOSPITAL COURSE: Ms. Llamas was admitted, neurology was consulted and recommended starting IV Solu-Medrol 1000 MG for total 3 days. See had no complications during her stay, and gradually improved with high-dose IV steroids and was discharged home to follow-up with her PCP and [facility] center in [place]. As expected, her white count oliver up to 20 on the day of discharge, likely 2/2 high-dose steroids. She is afebrile and asymptomatic, improving towards her baseline. Patient was instructed to return to ER for any emergency. DISCHARGE MEDICATIONS: Please see below. ALLERGIES: Please see below. PHYSICAL EXAMINATION ON DISCHARGE: VITAL SIGNS: Please see below. GENERAL: NAD, A&Ox3 HEENT: nc, at, EOMI NECK: supple, no JVD CARDIOVASCULAR EXAMINATION: RRR, normal S1 S2, soft 2/6 systolic murmur RESPIRATORY EXAMINATION: CTAB, no w/r/r ABDOMINAL EXAMINATION: soft, nt/nd, normoactive bowel sounds EXTREMITIES: 2+ pulses b/l, no cyanosis or edema SKIN: no visible rash or lesions, warm, dry NEUROLOGICAL EXAMINATION: no focal deficits, able to move all extremities LABORATORY DATA: Please see below. IMAGING: * 07/12/[address]: Right temporal lobe encephalomalacia. * 07/12/2018 CXR: Negative portable chest. * 07/03/2018 brain MRI: The above findings are consistent with multiple sclerosis that are unchanged compared to the previous study. PROGNOSIS: good ACTIVITY: As tolerated. DIET: As tolerated DISPOSITION: home DISCHARGE INSTRUCTIONS: 1. Follow-up with PCP within 1 week 2. Follow-up with [facility] center in [place] within 2 weeks 3. Return to ER for emergency DISCHARGE CONDITION: Stable. TIME SPENT ON DISCHARGE: Greater than 35 minutes. Vital Signs/I&Os Vital Signs Date Time Temp Pulse Resp B/P (MAP) Pulse Ox O2 Delivery O2 Flow Rate FiO2 07/14/18 06:00 99.4 94 16 132/59 (83) 98 07/12/18 22:15 Room Air I&O- Last 24 Hours up to 6 AM 07/14/18 06:00 Intake Total 240 ml Output Total 900 ml Balance -660 ml Laboratory Data Labs 24H Laboratory Tests 2 07/14/18 06:11: Nucleated Red Blood Cells % (auto) 0.0, Anion Gap 6L, Glomerular Filtration Rate > 60.0, Blood Urea Nitrogen 12, Creatinine 0.66, Sodium Level 142, Potassium Level 4.0, Chloride Level 109H, Carbon Dioxide Level 27, Calcium Level 8.1L CBC/BMP Laboratory Tests 07/14/18 06:11 Red Blood Count 4.35, Mean Corpuscular Volume 90.6, Mean Corpuscular Hemoglobin 30.3, Mean Corpuscular Hemoglobin Concent 33.5, Red Cell Distribution Width 12.2, Calcium Level 8.1 L Discharge Medications Scheduled (Calcium Gummies 250-100-500 mg-Unit) 1 Chw Chw, 1 CHW PO DAILY, (Reported) (Mometasone Furoate) 50 Mcg/Act Spr, 2 SPRAYS NA DAILY, (Reported) Ascorbic Acid (Ra Vitamin C/Acerola) 500 Mg Chw, 500 MG PO DAILY, (Reported) Glatiramer Acetate (Copaxone) 40 Mg/Ml Inj, 40 MG SC 3XW, (Reported) TAKES MONDAY, MONDAY AND MONDAY AT [facility]; AT LEAST 48 HOURS BETWEEN DOSES Multivitamins Chewable *[facility] STOCKED* (Animal Shapes with C & FA *[facility] STOCKED*) 1 Tab Chew, 2 TAB PO DAILY, (Reported) [B Complex Gummies] , 1 CHEW PO DAILY, (Reported) Scheduled PRN Albuterol Sulfate (Albuterol Sulfate) 2.5 Mg/3 Ml Nebu, 2.5 MG INH Q4H PRN for SHORTNESS OF BREATH, (Reported) Albuterol Sulfate (Proair Hfa) 108 Mcg/Act Aer, 2 PUFF INH Q4H PRN for SHORTNESS OF BREATH, (Reported) Methocarbamol (Methocarbamol) 500 Mg Tab, 500 MG PO QHS PRN for MUSCLE SPASMS, (Reported) CAN TAKE SECOND TABLET IF NEEDED Allergies Coded Allergies: Latex (Unverified Allergy, Intermediate, RASH/ITCHING, 08/21/12) Sulfamethoxazole w/Trimethoprim (Verified Allergy, Intermediate, VOMITING STOMACH PAIN, 06/21/16) Shrimp (Verified Allergy, Mild, 07/12/18) throat tingles, scratches Tuberculin (Verified Allergy, Mild, 10/30/17) Lactose (Verified Allergy, Unknown, 09/01/16) GME ATTESTATION GME ATTESTATION My faculty preceptor for this patient encounter was physically present during the encounter and was fully available. All aspects of the patient interview, examination, medical decision making process, and medical care plan development were reviewed and approved by the faculty preceptor. The faculty preceptor is aware and concurs with the plan as stated in the body of this note and will attest to such by his/her cosignature. RISHABH RUTHERFORD DO Jul 14, 2018 16:07
== END 2018-07-14 11:21 | disposition home or self-care (01) | DRG 43 ==
LOC: EDBD 11:58 → M ED 11:58 → M ED INP 20:25 → M MSPAV 22:20
PROVIDERS: ADMIT Hospitalist; ATTEND Internal Medicine
DX: G35 Multiple sclerosis (principal); E73.9 Lactose intolerance, unspecified; J45.909 Unspecified asthma, uncomplicated; D72.829 Elevated white blood cell count, unspecified; K21.9 Gastro-esophageal reflux disease without esophagitis; G43.909 Migraine, unspecified, not intractable, without status migrainosus; Z79.899 Other long term (current) drug therapy; Z88.2 Allergy status to sulfonamides; Z91.040 Latex allergy status; Z91.013 Allergy to seafood; Z88.7 Allergy status to serum and vaccine

== ENCOUNTER → 2018-09-13 | Outpatient (CLI) | payer BC, OTHER ==
[~2018-09-13] MED LIST changes: +CALC600T57 PO; +CALCCHW18 PO; +COPA1INJ SC; +METH1TAB40 PO; +MOME50SP2; +PROAAER10 INH; +PROHANCE 279.3MG/ML 15ML VIAL (A9576) As Ordered ONE; +PROHANCE 279.3MG/ML 5ML VIAL (A9576) As Ordered ONE; +VITA1TAB23 PO; +VITA500T9 PO; +VITACHTA PO; +[UNRECOGNIZED DRUG - CODE] SL; +[UNRECOGNIZED DRUG - OTHER] PO
--- NOTE | 2018-09-13 15:42 | REP ---
MR BRAIN WITHOUT AND WITH CONTRAST: HISTORY: Multiple sclerosis. CONTRAST: ProHance 20 mL. COMPARISON: 07/12/2018. Multiple areas of increased signal intensity on T2-weighted images are present in the periventricular and subcortical white matter. Additional areas of increased signal intensity are present in the corpus callosum and right cerebellum. These are unchanged compared to the previous study. There are no new areas of abnormal signal intensity. There is no intraparenchymal hemorrhage, infarct, mass or midline shift. The sella turcica is partially empty. There is no abnormal enhancement. The ventricular system is normal in appearance. There is no extracerebral collection. Minimal mucosal thickening is present in the right ethmoid sinus. IMPRESSION: The above findings are consistent with multiple sclerosis that are unchanged compared to the previous study. Electronically Signed by Juan A Mckinney MD 09/13/2018 03:46 P
== END ==
LOC: M RAD 11:03
PROVIDERS: ATTEND Psychiatry & Neurology Neurology
DX: G35 Multiple sclerosis (principal)
CPT/HCPCS: 70553; A9576

== ENCOUNTER → 2018-10-08 | Outpatient (CLI) | payer BC, OTHER ==
[~2018-10-08] MED LIST changes: -PROHANCE 279.3MG/ML 15ML VIAL (A9576) As Ordered ONE; -PROHANCE 279.3MG/ML 5ML VIAL (A9576) As Ordered ONE
--- NOTE | 2018-10-09 07:57 | REP ---
Clinical: Trauma. Technique: AP, lateral, bilateral oblique views left foot . Findings: The osseous structures and joint spaces are intact and normal. There is no evidence for acute fracture or dislocation. Surrounding soft tissues are unremarkable. No subcutaneous emphysema or radiodense foreign body. Impression: No acute fracture or dislocation. Electronically Signed by Hill Lyons MD 10/09/2018 07:49 A
== END ==
LOC: M WUC 18:14
PROVIDERS: ATTEND Physician Assistant
DX: S90.32XA Contusion of left foot, initial encounter (principal); X58.XXXA Exposure to other specified factors, initial encounter; Y92.9 Unspecified place or not applicable

== ENCOUNTER → 2019-01-24 | Outpatient (REF) | payer OTHER ==
[2019-01-24 14:16] LABS: ALBUMIN 3.9 GM/DL (3.2-5.2); ALT/SGPT 30 U/L (12-78); BILIRUBIN,TOTAL 0.4 MG/DL (0.2-1.0); BLOOD UREA NITROGEN 6 MG/DL (7-18); CALCIUM LEVEL 9.3 MG/DL (8.5-10.1); CARBON DIOXIDE LEVEL 27 MEQ/L (21-32); CHLORIDE LEVEL 107 MEQ/L (98-107); CHOLESTEROL LEVEL 175 MG/DL (<200); CHOLESTEROL RISK RATIO 3.571 (<5); CREATININE FOR GFR 0.63 MG/DL (0.55-1.30); GLOMERULAR FILTRATION RATE > 60.0 (>60); GLUCOSE, FASTING 90 MG/DL (70-100); HDL CHOLESTEROL 49 MG/DL (>40); LDL CHOLESTEROL 109 MG/DL (<100); NON-HDL-C 126 MG/DL; POTASSIUM SERUM 4.4 MEQ/L (3.5-5.1); SODIUM LEVEL 140 MEQ/L (136-145); TOTAL PROTEIN 6.8 GM/DL (6.4-8.2); TRIGLYCERIDES LEVEL 83 MG/DL (<150)
[2019-01-24 14:20] LABS: TOTAL 25(OH) VITAMIN D 25.2 NG/ML (30.0-100.0); VITAMIN B12 LEVEL 475 PG/ML (247-911)
== END ==
LOC: M SFHCPLAZ 10:12
PROVIDERS: ATTEND Family Medicine
DX: Z13.1 Encounter for screening for diabetes mellitus (principal); Z13.220 Encounter for screening for lipoid disorders; E55.9 Vitamin D deficiency, unspecified; E53.8 Deficiency of other specified B group vitamins

== ENCOUNTER → 2019-02-13 | Outpatient (CLI) | payer BC, OTHER ==
--- NOTE | 2019-02-13 10:42 | REP ---
PA and lateral chest: The patient has clinical history of shortness of breath and asthma. Comparison is 05/15/2007. There are no focal infiltrates. There are no pleural effusions. Lung muñoz are clear. The cardiac size is normal. The eduardo, mediastinum, and skeletal structures are unremarkable. Impression: Negative PA and lateral chest. Electronically Signed by Eric Weeks MD 02/13/2019 10:33 A
== END ==
LOC: M LRY 10:22
PROVIDERS: ATTEND Nurse Practitioner Family
DX: R06.02 Shortness of breath (principal)

== ENCOUNTER → 2019-02-23 | Outpatient (CLI) | payer BC, OTHER ==
--- NOTE | 2019-02-23 13:09 | REP ---
PA and lateral chest: Comparison is 02/13/2019. There are three views including two PA and single lateral projections. The lung muñoz are clear. The cardiac size is normal. The eduardo, mediastinum, and skeletal structures are unremarkable. Impression: Negative PA and lateral chest. There is no interval change. Electronically Signed by Eric Weeks MD 02/23/2019 01:01 P
== END ==
LOC: M LRY 12:25
PROVIDERS: ATTEND Physician Assistant
DX: R05 Cough (principal); R06.2 Wheezing

== ENCOUNTER → 2019-08-02 | Outpatient (CLI) | payer BC, OTHER ==
[~2019-08-02] MED LIST changes: +PROHANCE 279.3MG/ML 15ML VIAL (A9576) As Ordered ONE; +PROHANCE 279.3MG/ML 5ML VIAL (A9576) As Ordered ONE
--- NOTE | 2019-08-02 11:40 | REPVR ---
PROCEDURE INFORMATION: Exam: MR Head Without and With Contrast Exam date and time: 08/02/2019 10:08 AM Age: 33 years old Clinical indication: Condition or disease; Multiple sclerosis; Additional info: Ms TECHNIQUE: Imaging protocol: MR of the head without and with intravenous contrast. 3D rendering: MIP and/or 3D reconstructed images were created by the technologist. Contrast material: PROHANCE; Contrast volume: 20 ml; Contrast route: IV; COMPARISON: MRI-Brain W/O FOLL BY WITH 09/13/2018 12:03 PM FINDINGS: Brain: There is no significant change in the number or size of the moderate burden of white matter T2 hyperintense lesions again with a great is predominance of a lesions in the periventricular white matter, right greater than left, and in the right cerebellum. No lesions demonstrating restricted diffusion or contrast enhancement. There is no significant subjective cerebral volume loss. Partially empty sella appearance, stable. No acute intracranial hemorrhage. No acute ischemic infarction. Ventricles: Normal. No ventriculomegaly. Bones/joints: Unremarkable. Soft tissues: Unremarkable. Sinuses: Mild paranasal sinus mucosal thickening. Mastoid air cells: Normal as visualized. No mastoid effusion. Orbits: Unremarkable. IMPRESSION: 1. No acute intracranial abnormality. 2. No significant change in burden of demyelinating disease. No contrast enhancing/active lesions. Electronically signed by: Kristian Queen On 08/02/2019 11:40:02 AM
== END ==
LOC: M RAD 08:14
PROVIDERS: ATTEND Physician Assistant Medical
DX: G35 Multiple sclerosis (principal)
CPT/HCPCS: 70553; A9576

== ENCOUNTER → 2020-03-17 | Outpatient (CLI) | payer OTHER, BC ==
[~2020-03-17] MED LIST changes: +ASCO250T20 PO; -PROHANCE 279.3MG/ML 15ML VIAL (A9576) As Ordered ONE; -PROHANCE 279.3MG/ML 5ML VIAL (A9576) As Ordered ONE; -VITA1TAB23 PO
[2020-03-17 19:09] LABS: BASO # 0.1 10^3/uL (0.0-0.2); BASO % 0.6 % (0.0-1.0); EOS # 0.1 10^3/uL (0.0-0.5); HEMATOCRIT 41.6 % (36.0-47.0); HEMOGLOBIN 13.7 g/dl (12.0-15.5); LYMPH # 2.8 10^3/uL (1.5-5.0); LYMPH % 36.3 % (24.0-44.0); MEAN CORPUSCULAR HEMOGLOBIN 30.6 pg (27.0-33.0); MEAN CORPUSCULAR HGB CONC 32.9 g/dl (32.0-36.5); MEAN CORPUSCULAR VOLUME 93.1 fl (80.0-96.0); MONO # 0.5 10^3/uL (0.0-0.8); MONO % 6.1 % (0.0-5.0); NEUTROPHILS # 4.3 10^3/uL (1.5-8.5); NEUTROPHILS % 55.7 % (36.0-66.0); PLATELET COUNT, AUTOMATED 318 10^3/uL (150-450); RED BLOOD COUNT 4.47 10^6/uL (4.00-5.40); WHITE BLOOD COUNT 7.7 10^3/uL (4.0-10.0)
[2020-03-17 19:32] LABS: ALT/SGPT 43 U/L (12-78); AMYLASE 36 U/L (25-115); BILIRUBIN,TOTAL 0.4 MG/DL (0.2-1.0); BLOOD UREA NITROGEN 8 MG/DL (7-18); CALCIUM LEVEL 8.8 MG/DL (8.5-10.1); CARBON DIOXIDE LEVEL 27 MEQ/L (21-32); CHLORIDE LEVEL 108 MEQ/L (98-107); CREATININE FOR GFR 0.73 MG/DL (0.55-1.30); GLOMERULAR FILTRATION RATE > 60.0 (>60); GLUCOSE, FASTING 80 MG/DL (70-100); LIPASE 97 U/L (73-393); SODIUM LEVEL 143 MEQ/L (136-145); TOTAL PROTEIN 7.1 GM/DL (6.4-8.2)
== END ==
LOC: M WUC 15:40
PROVIDERS: ATTEND Physician Assistant
DX: R10.811 Right upper quadrant abdominal tenderness (principal)

== ENCOUNTER → 2020-04-03 | Outpatient (CLI) | payer SELFPAY | LOC: M LABSMTC 14:00 | PROVIDERS: ATTEND Pediatrics | DX: Z20.828 Contact with and (suspected) exposure to other viral communicable diseases (principal) ==

== ENCOUNTER → 2020-04-30 | Outpatient (CLI) | payer BC, OTHER ==
[~2020-04-30] MED LIST changes: +ALLE180T33 PO; +CVS2500C PO; +FLON1SPR NARES; +OMEP-218
== END ==
LOC: M LABSMTC 14:30
PROVIDERS: ATTEND Anesthesiology
DX: Z01.812 Encounter for preprocedural laboratory examination (principal); Z20.828 Contact with and (suspected) exposure to other viral communicable diseases

== ENCOUNTER 2020-05-05 07:25 | Day surgery (SDC) | payer BC, OTHER ==
[~2020-05-05] VITALS: Ht 162.6 cm; Wt 117.5 kg
[~2020-05-05 07:25] MED LIST changes: +LIDOCAINE 1% MDV 20ML VIAL SQ PRN; +LR 1,000 ML IV ONE; +ceFAZolin SOD 2 GM in IV 1 EA IV ONE
[2020-05-05 08:50] LABS: HCG, SERUM QUALITATIVE NEGATIVE (NEGATIVE)
[2020-05-05] MEDS ORDERED: BUPIVACAINE HCL 0.25% 10ML VIAL As Ordered ONE (09:22)
[2020-05-05] MEDS ORDERED: LIDOCAINE W/EPINEPHRINE 1% 20ML VIAL As Ordered ONE (09:23)
[2020-05-05] MEDS ORDERED: ONDANSETRON 4MG/2ML VIAL As Ordered ONE ×2 (09:54→11:03)
[2020-05-05] MEDS ORDERED: LIDOCAINE 2% 100MG/5ML SDV (FOR ANES.) As Ordered ONE (09:54)
[2020-05-05] MEDS ORDERED: ROCURONIUM BROMIDE 50 MG/5 ML VIAL As Ordered ONE (09:54)
[2020-05-05] MEDS ORDERED: MIDAZOLAM INJ 2MG/2ML VIAL (J2250 PER 1MG) As Ordered ONE (09:54)
[2020-05-05] MEDS ORDERED: dexameTHASONE 4 MG/ML 1ML VIAL (J1100 PER 1MG) As Ordered ONE (09:54)
[2020-05-05] MEDS ORDERED: KETOROLAC 60MG 2ML VIAL As Ordered ONE (09:54)
[2020-05-05] MEDS ORDERED: propofoL 200 MG/20 ML VIAL As Ordered ONE (09:54)
[2020-05-05] MEDS ORDERED: SUGAMMADEX SODIUM 500 MG/5 ML VIAL (BRIDION) As Ordered ONE (09:54)
[2020-05-05] MEDS ORDERED: ACETAMINOPHEN 1000MG 100ML IV BTL (OFIRMEV) (J0131 PER 10MG) As Ordered ONE (09:54)
[2020-05-05] MEDS ORDERED: fentaNYL 250 MCG/5 ML INJECTION (J3010) As Ordered ONE (09:54)
[2020-05-05] MEDS ORDERED: METOCLOPRAMIDE INJ 10MG/2ML VIAL (J2765 PER 1) As Ordered ONE (11:03)
[2020-05-05] MEDS ORDERED: LR 1,000 ML IV SCH (11:15)
[2020-05-05] MEDS ORDERED: METOCLOPRAMIDE INJ 10MG/2ML VIAL (J2765 PER 1) IV PRN (11:15)
[2020-05-05] MEDS ORDERED: MEPERIDINE INJ 25 MG/ML VIAL (J2175) IV PRN (11:15)
[2020-05-05] MEDS ORDERED: ONDANSETRON 4MG/2ML VIAL IV PRN (11:15)
[2020-05-05] MEDS ORDERED: oxyCODONE 5MG TAB PO PRN (11:15)
[2020-05-05] MEDS ORDERED: NS 1,000 ML IV SCH (11:15)
[2020-05-05] MEDS ORDERED: traMADol 50 MG TAB PO PRN (11:15)
[2020-05-05] MEDS: fentaNYL 100 MCG/2 ML INJECTION (J3010) IV PRN ×2 (11:27→11:34)
[2020-05-05 13:35] VITALS: BP 140/79
--- NOTE | 2020-05-05 15:26 | RO ---
OPERATIVE NOTE DATE OF OPERATION: 05/05/2020 PREOPERATIVE DIAGNOSIS: Symptomatic cholecystitis. POSTOPERATIVE DIAGNOSIS: Symptomatic cholecystitis. PROCEDURE: Laparoscopic cholecystectomy. SURGEON: Long Olivares MD ANESTHESIA: General endotracheal anesthesia. EBL: Minimal. FLUIDS: Crystalloid. BRIEF PROCEDURE SUMMARY: The patient was brought to the operating room, was given general anesthesia. After adequate anesthesia and preoperative antibiotics were given, the patient was prepped and draped in sterile fashion. Supraumbilical incision was made with skin knife; blunt dissection was carried down to fascia. Fascia was entered with Veress needle and insufflated to 15 mm of pressure. Dilating 10 mm trocar was placed at the umbilicus under direct visualization and epigastric and two lateral trocars were placed. The gallbladder was seen, grasped, retracted superiorly and there were some adhesions on the gallbladder which were taken down with Hook cautery and then neck of the gallbladder was cleared of peritoneum using Hook dissection and then eventually once this was dissected out nicely on the lateral aspect, anterior and then medial aspect the cystic artery was well visualized going onto the gallbladder itself. It was clipped proximally and distally and transected after creating a nice window behind the neck of the gallbladder. The cystic plate was well visualized in this area. The neck of the gallbladder was somewhat fluted and then did seem to taper down nicely. Once this tapered down adequately it was clipped proximally and distally and transected. The gallbladder was taken from the gallbladder bed using electrocautery, placed in an Endo Catch bag, brought out through the umbilicus. #0 Vicryl was used to close the fascia at the umbilicus and all incisions were closed with 4-0 Vicryl. Steri-Strips and dry, sterile dressing were applied. The patient was awakened, extubated and brought to recovery room awake, alert and hemodynamically stable. Sponge and needle counts correct x2.
== END 2020-05-05 13:54 | disposition home or self-care (01) ==
LOC: M SDC 07:25
PROVIDERS: ATTEND Surgery
DX: K81.1 Chronic cholecystitis (principal); K82.4 Cholesterolosis of gallbladder; K21.9 Gastro-esophageal reflux disease without esophagitis; G35 Multiple sclerosis; R01.1 Cardiac murmur, unspecified; K44.9 Diaphragmatic hernia without obstruction or gangrene; M12.9 Arthropathy, unspecified; Q79.60 Ehlers-Danlos syndrome, unspecified; F41.9 Anxiety disorder, unspecified; J45.909 Unspecified asthma, uncomplicated; Z79.899 Other long term (current) drug therapy; Z88.8 Allergy status to other drugs, medicaments and biological substances; Z91.013 Allergy to seafood; Z91.040 Latex allergy status
CPT/HCPCS: 36415; 47562; 81025; 84703; 88304; J0131; J0690; J1100; J1885; J2250; J2405; J2765; J3010

== ENCOUNTER 2020-05-08 17:48 | Emergency (ER) | payer BC, OTHER ==
[~2020-05-08] VITALS: Ht 162.6 cm; Wt 118.3 kg
[2020-05-08 17:48] VITALS: BP 142/87
[~2020-05-08 17:48] MED LIST changes: -LIDOCAINE 1% MDV 20ML VIAL SQ PRN; -LR 1,000 ML IV ONE; -ceFAZolin SOD 2 GM in IV 1 EA IV ONE
[2020-05-08] MEDS ORDERED: PRED20TA PO (18:46)
[2020-05-08] MEDS ORDERED: predniSONE 20 MG TAB PO ONE (19:00)
== END 2020-05-08 19:05 | disposition home or self-care (01) ==
LOC: M ED 17:48
DX: R22.2 Localized swelling, mass and lump, trunk (principal); Z91.048 Other nonmedicinal substance allergy status; J45.909 Unspecified asthma, uncomplicated; F41.9 Anxiety disorder, unspecified; K21.9 Gastro-esophageal reflux disease without esophagitis; E66.9 Obesity, unspecified; Z79.899 Other long term (current) drug therapy; Z88.1 Allergy status to other antibiotic agents; Z88.8 Allergy status to other drugs, medicaments and biological substances

== ENCOUNTER → 2020-07-28 | Outpatient (CLI) | payer BC, OTHER ==
[~2020-07-28] MED LIST changes: +METH-1164; +METH-1164 PO; -METH1TAB40; -METH1TAB40 PO; +PRED20TA PO
[2020-07-28 11:06] LABS: ALBUMIN 3.6 GM/DL (3.2-5.2); BLOOD UREA NITROGEN 11 MG/DL (7-18); CALCIUM LEVEL 9.4 MG/DL (8.5-10.1); CARBON DIOXIDE LEVEL 26 MEQ/L (21-32); CHLORIDE LEVEL 107 MEQ/L (98-107); CREATININE FOR GFR 0.66 MG/DL (0.55-1.30); GLOMERULAR FILTRATION RATE > 60.0 (>60); GLUCOSE, FASTING 96 MG/DL (70-100); PHOSPHORUS LEVEL 3.6 MG/DL (2.5-4.9); POTASSIUM SERUM 4.2 MEQ/L (3.5-5.1); SODIUM LEVEL 140 MEQ/L (136-145)
== END ==
LOC: M WUC 08:15
PROVIDERS: ATTEND Psychiatry & Neurology Neurology
DX: G35 Multiple sclerosis (principal)

== ENCOUNTER → 2020-07-31 | Outpatient (CLI) | payer BC, OTHER ==
[~2020-07-31] MED LIST changes: +PROHANCE 279.3MG/ML 15ML VIAL As Ordered ONE; +PROHANCE 279.3MG/ML 5ML VIAL As Ordered ONE
--- NOTE | 2020-07-31 09:59 | REP ---
INDICATION: MS. COMPARISON: Comparison is made with multiple prior studies, the most recent of these is from August 02, 2019. The most remote is from November 24, 2017.. TECHNIQUE: Axial and sagittal imaging planes are utilized for T1 and T2-weighted scans. Sequences include spin-echo, fast spin echo, FLAIR, and diffusion weighted sequences. 20 mL of intravenous ProHance is administered and post gadolinium enhanced images it are acquired in all 3 planes. FINDINGS: No bony calvarial lesion is seen. There is no evidence of paranasal sinus disease or intraorbital abnormality. Craniocervical junction upper cervical cord are normal in appearance. A small focus of T2 hyperintensity is again seen in the right cerebellum unchanged. Scattered periventricular and subcortical white matter T2 hyperintensities pattern is again seen above the tentorium bilaterally consistent with the diagnosis of MS. These lesions are unchanged in size and number when compared with the prior study from 2018. There is no evidence of restricted diffusion in any of these lesions. No new lesion is seen. No abnormal contrast enhancement is seen on post gadolinium enhanced images. There is no evidence of intracranial hemorrhage, mass, or infarction. No extra-axial fluid collection or midline shift is seen. IMPRESSION: Findings consistent with the diagnosis of multiple sclerosis unchanged from the original MRI study of 2018. Six <Electronically signed by Kang Levine > 07/31/20 [id number]
--- NOTE | 2020-07-31 10:03 | REP ---
INDICATION: MS. COMPARISON: Comparison is made with images of neck soft tissue CT study October 30, 2017.. TECHNIQUE: Sagittal and axial T1 and T2-weighted scans are acquired in the usual fashion with and without fat saturation. Sequences include spin echo, turbo spin-echo, and STIR imaging sequences. 20 mL of intravenous ProHance is administered and post gadolinium enhanced T1 weighted axial and sagittal scans are acquired. FINDINGS: There is slight straightening of the normal cervical lordosis. Cervical vertebral body heights are preserved. Alignment is normal. Disc spaces are maintained. The cervical cord is normal in course, caliber, and signal intensity on T1 and T2 weighted scans. There is no evidence of intramedullary signal intensity abnormality in the cord to suggest a demyelinating lesion. No abnormal gadolinium enhancement is appreciated. No cervical disc protrusion is seen. No cord compressive lesion is observed. No neural foraminal narrowing or spinal stenosis seen. IMPRESSION: Unremarkable cervical spine MRI study. No evidence of cervical cord lesion or cord compressive lesion. <Electronically signed by Kang Levine > 07/31/20 [id number]
== END ==
LOC: M RAD 07:50
PROVIDERS: ATTEND Psychiatry & Neurology Neurology
DX: G35 Multiple sclerosis (principal)
CPT/HCPCS: 70553; 72156; A9576

== ENCOUNTER 2020-09-10 18:45 | Emergency (ER) | payer BC, OTHER ==
[~2020-09-10] VITALS: Ht 162.6 cm; Wt 123.6 kg
[~2020-09-10 18:45] MED LIST changes: -PROHANCE 279.3MG/ML 15ML VIAL As Ordered ONE; -PROHANCE 279.3MG/ML 5ML VIAL As Ordered ONE
--- NOTE | 2020-09-10 20:48 | REPVR ---
PROCEDURE INFORMATION: Exam: US Duplex Right Lower Extremity Veins, Limited Exam date and time: 09/10/2020 8:04 PM Age: 34 years old Clinical indication: Pain; Leg, lower; Right; Additional info: Pain in calf, swelling, discoloration TECHNIQUE: Imaging protocol: Real-time Duplex ultrasound of the Right Lower Extremity with 2-D lewis scale, color Doppler flow and spectral waveform analysis with image documentation. Limited exam was focused on the right lower extremity veins. COMPARISON: US Duplex, Ext,LOWER veins,unilat 12/07/2015 9:20 PM FINDINGS: Right deep veins: Unremarkable. The common femoral, femoral, proximal profunda femoral and popliteal veins are patent without thrombus. Normal Doppler waveforms. Normal compressibility and/or augmentation response. Right superficial veins: Unremarkable. Saphenofemoral junction is patent without thrombus. Soft tissues: Unremarkable. IMPRESSION: No evidence of deep vein thrombosis. Electronically signed by: Sara Post On 09/10/2020 20:48:36 PM
[2020-09-10 20:55] VITALS: BP 158/89
== END 2020-09-10 20:56 | disposition home or self-care (01) ==
LOC: M ED 18:45
DX: R22.42 Localized swelling, mass and lump, left lower limb (principal); M79.661 Pain in right lower leg; Z91.040 Latex allergy status; Z79.899 Other long term (current) drug therapy; Z91.013 Allergy to seafood; Z88.2 Allergy status to sulfonamides

== ENCOUNTER → 2020-10-30 | Outpatient (CLI) | payer OTHER, BC ==
[2020-10-30 14:01] LABS: ALBUMIN 3.8 GM/DL (3.2-5.2); ALT/SGPT 41 U/L (12-78); BILIRUBIN,TOTAL 0.5 MG/DL (0.2-1.0); BLOOD UREA NITROGEN 9 MG/DL (7-18); CALCIUM LEVEL 8.7 MG/DL (8.5-10.1); CARBON DIOXIDE LEVEL 26 MEQ/L (21-32); CHLORIDE LEVEL 108 MEQ/L (98-107); CHOLESTEROL LEVEL 150 MG/DL (<200); CHOLESTEROL RISK RATIO 3.571 (<5); CREATININE FOR GFR 0.68 MG/DL (0.55-1.30); FREE T4 1.04 NG/DL (0.76-1.46); GLOMERULAR FILTRATION RATE > 60.0 (>60); GLUCOSE, FASTING 96 MG/DL (70-100); HDL CHOLESTEROL 42 MG/DL (>40); LDL CHOLESTEROL 90 MG/DL (<100); NON-HDL-C 108 MG/DL; POTASSIUM SERUM 4.3 MEQ/L (3.5-5.1); SODIUM LEVEL 140 MEQ/L (136-145); TOTAL 25(OH) VITAMIN D 27.4 NG/ML (30.0-100.0); TOTAL PROTEIN 6.9 GM/DL (6.4-8.2); TRIGLYCERIDES LEVEL 89 MG/DL (<150); VITAMIN B12 LEVEL 636 PG/ML (247-911)
== END ==
LOC: M WUC 09:27
PROVIDERS: ATTEND Family Medicine
DX: E55.9 Vitamin D deficiency, unspecified (principal); Z13.220 Encounter for screening for lipoid disorders; E01.0 Iodine-deficiency related diffuse (endemic) goiter; E53.8 Deficiency of other specified B group vitamins

== ENCOUNTER 2020-12-01 11:27 | Emergency (ER) | payer BC, OTHER ==
[~2020-12-01] VITALS: Ht 162.6 cm; Wt 123.6 kg
[2020-12-01 12:48] LABS: BASO # 0.1 10^3/uL (0.0-0.2); BASO % 0.6 % (0.0-1.0); EOS # 0.1 10^3/uL (0.0-0.5); EOS % 1.4 % (0.0-3.0); HEMATOCRIT 44.7 % (36.0-47.0); HEMOGLOBIN 14.8 g/dl (12.0-15.5); LYMPH # 2.7 10^3/uL (1.5-5.0); LYMPH % 31.9 % (24.0-44.0); MEAN CORPUSCULAR HEMOGLOBIN 30.4 pg (27.0-33.0); MEAN CORPUSCULAR HGB CONC 33.1 g/dl (32.0-36.5); MEAN CORPUSCULAR VOLUME 91.8 fl (80.0-96.0); MONO # 0.6 10^3/uL (0.0-0.8); MONO % 6.7 % (2.0-8.0); NEUTROPHILS # 4.9 10^3/uL (1.5-8.5); NEUTROPHILS % 59.2 % (36.0-66.0); PLATELET COUNT, AUTOMATED 286 10^3/uL (150-450); RED BLOOD COUNT 4.87 10^6/uL (4.00-5.40); WHITE BLOOD COUNT 8.4 10^3/uL (4.0-10.0)
[2020-12-01 13:15] LABS: ALBUMIN 3.9 GM/DL (3.2-5.2); BILIRUBIN,DIRECT 0.2 MG/DL (0.0-0.2); BILIRUBIN,TOTAL 0.6 MG/DL (0.2-1.0); TOTAL PROTEIN 7.1 GM/DL (6.4-8.2)
[2020-12-01 13:15] LABS: BLOOD UREA NITROGEN 8 MG/DL (7-18); CALCIUM LEVEL 9.1 MG/DL (8.5-10.1); CARBON DIOXIDE LEVEL 26 MEQ/L (21-32); CHLORIDE LEVEL 107 MEQ/L (98-107); CREATININE FOR GFR 0.62 MG/DL (0.55-1.30); GLOMERULAR FILTRATION RATE > 60.0 (>60); GLUCOSE, FASTING 91 MG/DL (70-100); POTASSIUM SERUM 3.8 MEQ/L (3.5-5.1); SODIUM LEVEL 138 MEQ/L (136-145)
[2020-12-01 13:29] LABS: HCG, SERUM QUALITATIVE NEGATIVE (NEGATIVE)
--- NOTE | 2020-12-01 15:28 | REP ---
INDICATION: flank pain on right COMPARISON: Comparison CT study September 01, 2016.. TECHNIQUE: Helical scanning is acquired and 3 mm axial images were reformatted. Coronal and sagittal MPR images were generated and reviewed. FINDINGS: Preliminary digital glass inserter radiograph demonstrates a normal bowel gas pattern. On axial CT images, there is a granulomatous calcification in the left lower lobe posterior lung gutter. The lung bases are otherwise clear. There is no evidence of pleural effusion or upper abdominal ascites. The liver shows mildly decreased density consistent with fatty infiltration diffusely. Post cholecystectomy clips are noted. No abnormality is noted in the pancreas. The spleen is normal in size homogeneous in texture. Normal adrenals are observed bilaterally. The kidneys are morphologically intact without evidence of hydronephrosis. No intrarenal stone is appreciated. No ureteral stone is seen on either side. Normal uterus and ovaries are observed bilaterally. Urinary bladder is unremarkable. No abdominal wall defect is seen. Bone window settings show no bony destructive lesion. Normal appendix is seen in the right lower quadrant. Small and large intestinal bowel loops are unremarkable. IMPRESSION: Fatty infiltration of the liver. Post cholecystectomy. No urinary tract calculus or hydronephrosis seen. Normal appendix. <Electronically signed by Kang Levine > 12/01/20 0836
[2020-12-01] MEDS ORDERED: KETOROLAC 60MG 2ML VIAL IM ONE (16:40)
[2020-12-01] MEDS ORDERED: KETOROLAC 30 MG/ML 1ML VIAL IV ONE (16:40)
[2020-12-01] MEDS ORDERED: METH-1164 PO (16:43)
[2020-12-01 16:55] VITALS: BP 131/75
== END 2020-12-01 17:04 | disposition home or self-care (01) ==
LOC: M ED 11:27
DX: M54.9 Dorsalgia, unspecified (principal); G89.29 Other chronic pain; R10.9 Unspecified abdominal pain; I10 Essential (primary) hypertension; J45.909 Unspecified asthma, uncomplicated; K76.0 Fatty (change of) liver, not elsewhere classified; Z88.7 Allergy status to serum and vaccine; Z91.013 Allergy to seafood; Z91.011 Allergy to milk products; Z91.040 Latex allergy status; Z91.048 Other nonmedicinal substance allergy status
CPT/HCPCS: 74176; 80048; 80076; 81001; 83690; 84703; 85025; 96372; 99284; J1885

== ENCOUNTER → 2020-12-29 | Outpatient (CLI) | payer BC, OTHER ==
[~2020-12-29] MED LIST changes: +ISOVUE-370 76% 100ML VIAL As Ordered ONE
[2020-12-29 17:55] LABS: APPEARANCE, URINE HAZY (CLEAR); BILIRUBIN, URINE AUTO NEGATIVE (NEGATIVE); BLOOD, URINE BLOOD 3+ (NEGATIVE); COLOR, URINE YELLOW (YELLOW); GLUCOSE, URINE (UA) AUTO NEGATIVE (NEGATIVE); KETONE, URINE AUTO NEGATIVE (NEGATIVE); LEUKOCYTE ESTERASE, URINE AUTO 1+ (NEGATIVE); NITRITE, URINE AUTO NEGATIVE (NEGATIVE); PROTEIN, URINE AUTO 1+ mg/dL (NEGATIVE); SPECIFIC GRAVITY URINE AUTO 1.016 (1.002-1.035); UROBILINOGEN, URINE AUTO 0.2 mg/dL (0.0-2.0); WBC, URINE AUTO 28 /HPF (0-3)
[2020-12-29 17:56] LABS: AMORPHOUS SEDIMENT SMALL (NEGATIVE); BACTERIA, URINE AUTO NEGATIVE (NEGATIVE); MUCUS, URINE SMALL (NEGATIVE); RBC, URINE AUTO 94 /HPF (0-3); SQUAMOUS EPITHELIAL CELL UR AU 6 /HPF (0-6)
--- NOTE | 2020-12-29 18:13 | REPVR ---
PROCEDURE INFORMATION: Exam: CT Neck With Contrast Exam date and time: 12/29/2020 5:31 PM Age: 35 years old Clinical indication: Mass, lump, or swelling in neck; Right; Additional info: Mass RT side of neck TECHNIQUE: Imaging protocol: Computed tomography images of the neck with contrast. Radiation optimization: All CT scans at this facility use at least one of these dose optimization techniques: automated exposure control; mA and/or kV adjustment per patient size (includes targeted exams where dose is matched to clinical indication); or iterative reconstruction. Contrast material: ISOVUE 370; Contrast volume: 75 ml; Contrast route: INTRAVENOUS (IV); COMPARISON: CT Neck without contrast 10/30/2017 11:41 AM FINDINGS: Nasopharynx: Unremarkable. Oropharynx: Unremarkable. No significant tonsillar enlargement. Hypopharynx: Unremarkable. Larynx: Unremarkable. Normal epiglottis. Retropharyngeal space: Unremarkable. Submandibular/Parotid glands: Normal. Glands are normal in size. Thyroid: Normal. No enlarged or calcified nodules. Lymph nodes: No pathologically enlarged lymph nodes. Trachea: Visualized trachea is unremarkable. Lungs: Unremarkable as visualized. Bones/joints: Unremarkable. No acute fracture. Soft tissues: A marker is placed on the right soft tissues at the base of the neck. Deep to the marker, no mass, fluid collection or enlarged lymph nodes identified. Previously seen left neck soft tissue inflammatory changes have resolved. IMPRESSION: No acute findings. Electronically signed by: Maryjane Winter On 12/29/2020 18:12:41 PM
== END ==
LOC: M RAD 17:17
PROVIDERS: ATTEND Family Medicine
DX: R35.0 Frequency of micturition (principal); R22.1 Localized swelling, mass and lump, neck
CPT/HCPCS: 70491; 81001; 87088; 87186; Q9967

== ENCOUNTER → 2021-01-15 | Outpatient (CLI) | payer BC, OTHER ==
[~2021-01-15] MED LIST changes: -ISOVUE-370 76% 100ML VIAL As Ordered ONE; +PROHANCE 279.3MG/ML 15ML VIAL As Ordered ONE; +PROHANCE 279.3MG/ML 5ML VIAL As Ordered ONE
--- NOTE | 2021-01-16 00:54 | REPVR ---
PROCEDURE INFORMATION: Exam: MR Thoracic Spine Without and With Contrast Exam date and time: 01/15/2021 9:55 AM Age: 35 years old Clinical indication: Screening exam; Other: ; Ms history TECHNIQUE: Imaging protocol: Multiplanar magnetic resonance images of the thoracic spine without and with contrast. Contrast material: PROHANCE; Contrast volume: 20 ml; Contrast route: INTRAVENOUS (IV); COMPARISON: CT ABD PELVIS W/O CONTRAST 12/01/2020 3:05 PM FINDINGS: Small faint scattered T2/STIR hyperintense lesions throughout the thoracic spinal cord, most prominent lesion in the anterior central cord at the T5-T6 level. No abnormal enhancement within the thoracic spine. Thin (1 mm diameter) central spinal cord syrinx starting at C7 and extending inferiorly to T12. Small central disc protrusion at T6-T7 causing focal mild canal narrowing. Disc space heights are otherwise preserved. No severe thoracic spinal canal narrowing. No cord compression. Thoracic vertebral body heights are maintained. No abnormal marrow signal. Thoracic kyphosis is preserved. Paravertebral soft tissues are unremarkable. IMPRESSION: 1. Small faint scattered T2/STIR hyperintense lesions throughout the thoracic spinal cord, most prominent lesion in the anterior central cord at the T5-T6 level, likely correlating with provided history of multiple sclerosis. 2. Other chronic findings, as above. Electronically signed by: Mando Wagner On 01/16/2021 00:54:47 AM
== END ==
LOC: M RAD 08:50
PROVIDERS: ATTEND Nurse Practitioner Adult Health
DX: G35 Multiple sclerosis (principal)
CPT/HCPCS: 72157; A9576

== ENCOUNTER → 2021-05-20 | Outpatient (CLI) | payer BC, OTHER ==
[~2021-05-20] MED LIST changes: -PROHANCE 279.3MG/ML 15ML VIAL As Ordered ONE; -PROHANCE 279.3MG/ML 5ML VIAL As Ordered ONE
--- NOTE | 2021-05-24 10:06 | REP ---
INDICATION: THYROID CYST COMPARISON: 10/29/2020 TECHNIQUE: Alexandre scale and color evaluation of the thyroid gland using the linear high frequency transducer. FINDINGS: The thyroid gland is normal in contour, shape, size, and echogenicity. No nodule/mass or cystic abnormalities are appreciated. Right thyroid lobe measures 5.6 x 2.4 x 1.8 cm and includes incidental 4 mm posterior midpole cyst. Isthmus measures 3.6 mm in width. Left thyroid lobe measures 5.8 x 1.8 x 1.7 cm and includes incidental 2 mm mid/lower pole cyst. IMPRESSION: No change from prior examination. Small cysts are nonspecific and likely incidental. <Electronically signed by Hill Lyons > 05/24/21 1002
== END ==
LOC: M RAD 10:27
PROVIDERS: ATTEND Family Medicine
DX: E04.1 Nontoxic single thyroid nodule (principal)

== ENCOUNTER 2021-06-04 12:22 | Emergency (ER) | payer BC, OTHER ==
[~2021-06-04] VITALS: Ht 162.6 cm; Wt 125.6 kg
[~2021-06-04 12:22] MED LIST changes: +OMEP-173; -OMEP-218
[2021-06-04] MEDS ORDERED: diphenhydrAMINE 50MG/ML VIAL (J1200) IV ONE (12:50)
[2021-06-04] MEDS ORDERED: methylPREDNISolone 125MG 2ML VIAL IV ONE (12:50)
[2021-06-04 13:50] LABS: BASO % 0.4 % (0.0-1.0); EOS # 0.1 10^3/uL (0.0-0.5); EOS % 0.6 % (0.0-3.0); HEMATOCRIT 45.8 % (36.0-47.0); HEMOGLOBIN 15.4 g/dl (12.0-15.5); LYMPH # 1.7 10^3/uL (1.5-5.0); LYMPH % 17.3 % (24.0-44.0); MEAN CORPUSCULAR HEMOGLOBIN 30.5 pg (27.0-33.0); MEAN CORPUSCULAR HGB CONC 33.6 g/dl (32.0-36.5); MEAN CORPUSCULAR VOLUME 90.7 fl (80.0-96.0); MONO # 0.6 10^3/uL (0.0-0.8); MONO % 6.6 % (2.0-8.0); NEUTROPHILS # 7.1 10^3/uL (1.5-8.5); NEUTROPHILS % 74.7 % (36.0-66.0); PLATELET COUNT, AUTOMATED 256 10^3/uL (150-450); RED BLOOD COUNT 5.05 10^6/uL (4.00-5.40); WHITE BLOOD COUNT 9.5 10^3/uL (4.0-10.0)
[2021-06-04 14:26] LABS: BLOOD UREA NITROGEN 7 MG/DL (7-18); CARBON DIOXIDE LEVEL 25 MEQ/L (21-32); CHLORIDE LEVEL 108 MEQ/L (98-107); CREATININE FOR GFR 0.66 MG/DL (0.55-1.30); GLOMERULAR FILTRATION RATE > 60.0 (>60); GLUCOSE, FASTING 89 MG/DL (70-100); POTASSIUM SERUM 4.1 MEQ/L (3.5-5.1); SODIUM LEVEL 140 MEQ/L (136-145)
[2021-06-04 15:00] VITALS: BP 137/64
== END 2021-06-04 15:26 | disposition home or self-care (01) ==
LOC: M ED 12:22
DX: R22.0 Localized swelling, mass and lump, head (principal); T50.Z95A Adverse effect of other vaccines and biological substances, initial encounter; R94.01 Abnormal electroencephalogram [EEG]; J45.909 Unspecified asthma, uncomplicated; K21.9 Gastro-esophageal reflux disease without esophagitis; G35 Multiple sclerosis; Z88.2 Allergy status to sulfonamides; Z88.7 Allergy status to serum and vaccine; Z91.013 Allergy to seafood; Z91.048 Other nonmedicinal substance allergy status; Z91.040 Latex allergy status
CPT/HCPCS: 71046; 80048; 84484; 85025; 93005; 93041; 94760; 96374; 99284; J1200; J2930

== ENCOUNTER → 2021-08-07 | Outpatient (CLI) | payer BC, OTHER ==
[~2021-08-07] MED LIST changes: +DICY20TA20 PO; +IBUP-1022 PO; +OMEP40CA5 PO; +VITMTA PO; +nasonex
== END ==
LOC: M LAB 11:17
PROVIDERS: ATTEND Internal Medicine Gastroenterology
DX: K31.84 Gastroparesis (principal)

== ENCOUNTER → 2021-08-09 | Outpatient (CLI) | payer BC, OTHER | LOC: M LABSMTC 11:52 | PROVIDERS: ATTEND Anesthesiology | DX: Z20.828 Contact with and (suspected) exposure to other viral communicable diseases (principal); Z11.59 Encounter for screening for other viral diseases ==

== ENCOUNTER 2021-08-13 09:31 | Day surgery (SDC) | payer BC, OTHER ==
[~2021-08-13] VITALS: Ht 162.6 cm; Wt 121.9 kg
[~2021-08-13 09:31] MED LIST changes: +LIDOCAINE 2% 100MG/5ML SDV (FOR ANES.) As Ordered ONE; +NS 1,000 ML IV ONE; +propofoL 200 MG/20 ML VIAL As Ordered ONE
[2021-08-13] MEDS ORDERED: propofoL 200 MG/20 ML VIAL As Ordered ONE ×2 (11:26→11:44)
[2021-08-13 12:15] VITALS: BP 107/55
== END 2021-08-13 12:17 | disposition home or self-care (01) ==
LOC: M OPP 09:31
PROVIDERS: ATTEND Internal Medicine Gastroenterology
DX: K63.5 Polyp of colon (principal); K58.0 Irritable bowel syndrome with diarrhea; K64.8 Other hemorrhoids; K31.84 Gastroparesis; K31.89 Other diseases of stomach and duodenum; R10.13 Epigastric pain; K20.90 Esophagitis, unspecified without bleeding; Z79.899 Other long term (current) drug therapy; Z88.2 Allergy status to sulfonamides; Z88.8 Allergy status to other drugs, medicaments and biological substances; Z91.011 Allergy to milk products; Z91.013 Allergy to seafood; Z91.018 Allergy to other foods; Z91.048 Other nonmedicinal substance allergy status; Z87.891 Personal history of nicotine dependence

== ENCOUNTER → 2021-08-30 | Outpatient (REF) | payer BC, OTHER ==
[~2021-08-30] MED LIST changes: -LIDOCAINE 2% 100MG/5ML SDV (FOR ANES.) As Ordered ONE; -NS 1,000 ML IV ONE; -propofoL 200 MG/20 ML VIAL As Ordered ONE
== END ==
LOC: M WUC 19:56
PROVIDERS: ATTEND Physician Assistant
DX: N30.01 Acute cystitis with hematuria (principal)

== ENCOUNTER → 2021-12-13 | Outpatient (CLI) | payer BC, OTHER ==
[~2021-12-13] MED LIST changes: +ALBU2.5V10 INH; -ALBU83IN INH
[2021-12-13 08:22] LABS: HEMOGLOBIN A1c 5.2 %
[2021-12-13 08:33] LABS: ALBUMIN 3.6 GM/DL (3.2-5.2); ALT/SGPT 27 U/L (12-78); BILIRUBIN,TOTAL 0.6 MG/DL (0.2-1.0); BLOOD UREA NITROGEN 11 MG/DL (7-18); CALCIUM LEVEL 9.1 MG/DL (8.5-10.1); CARBON DIOXIDE LEVEL 25 MEQ/L (21-32); CHLORIDE LEVEL 112 MEQ/L (98-107); CHOLESTEROL LEVEL 159 MG/DL (<200); CHOLESTEROL RISK RATIO 4.076 (<5); CREATININE FOR GFR 0.74 MG/DL (0.55-1.30); FREE T4 0.89 NG/DL (0.76-1.46); GLOMERULAR FILTRATION RATE > 60.0 (>60); GLUCOSE, FASTING 99 MG/DL (70-100); HDL CHOLESTEROL 39 MG/DL (>40); LDL CHOLESTEROL 93 MG/DL (<100); NON-HDL-C 120 MG/DL; POTASSIUM SERUM 4.2 MEQ/L (3.5-5.1); SODIUM LEVEL 144 MEQ/L (136-145); THYROID STIMULATING HORMONE 0.772 uIU/ML (0.358-3.740); TOTAL PROTEIN 6.3 GM/DL (6.4-8.2); TRIGLYCERIDES LEVEL 134 MG/DL (<150)
[2021-12-13 11:20] LABS: TOTAL 25(OH) VITAMIN D 21.4 NG/ML (30.0-100.0); VITAMIN B12 LEVEL 388 PG/ML (247-911)
== END ==
LOC: M RAD 07:06
PROVIDERS: ATTEND Family Medicine
DX: E04.9 Nontoxic goiter, unspecified (principal); E55.9 Vitamin D deficiency, unspecified; K90.9 Intestinal malabsorption, unspecified; Z13.220 Encounter for screening for lipoid disorders; Z13.1 Encounter for screening for diabetes mellitus

== ENCOUNTER → 2022-02-22 | Outpatient (CLI) | payer BC, OTHER ==
[2022-02-22 10:55] LABS: BASO % 0.3 % (0.0-1.0); EOS # 0.1 10^3/uL (0.0-0.5); EOS % 1.3 % (0.0-3.0); HEMATOCRIT 44.3 % (36.0-47.0); HEMOGLOBIN 14.4 g/dl (12.0-15.5); LYMPH # 2.6 10^3/uL (1.5-5.0); LYMPH % 36.6 % (24.0-44.0); MEAN CORPUSCULAR HEMOGLOBIN 30.2 pg (27.0-33.0); MEAN CORPUSCULAR HGB CONC 32.5 g/dl (32.0-36.5); MEAN CORPUSCULAR VOLUME 92.9 fl (80.0-96.0); MONO # 0.5 10^3/uL (0.0-0.8); MONO % 6.5 % (2.0-8.0); NEUTROPHILS # 3.9 10^3/uL (1.5-8.5); PLATELET COUNT, AUTOMATED 288 10^3/uL (150-450); RED BLOOD COUNT 4.77 10^6/uL (4.00-5.40); WHITE BLOOD COUNT 7.1 10^3/uL (4.0-10.0)
[2022-02-22 11:16] LABS: ERYTHROCYTE SEDIMENTATION RATE 8 mm/hr (0-20)
[2022-02-22 11:33] LABS: ALBUMIN 3.6 GM/DL (3.2-5.2); ALT/SGPT 32 U/L (12-78); BILIRUBIN,TOTAL 0.4 MG/DL (0.2-1.0); BLOOD UREA NITROGEN 9 MG/DL (7-18); CALCIUM LEVEL 8.9 MG/DL (8.5-10.1); CARBON DIOXIDE LEVEL 28 MEQ/L (21-32); CHLORIDE LEVEL 106 MEQ/L (98-107); CREATININE FOR GFR 0.65 MG/DL (0.55-1.30); GLOMERULAR FILTRATION RATE > 60.0 (>60); GLUCOSE, FASTING 96 MG/DL (70-100); POTASSIUM SERUM 4.5 MEQ/L (3.5-5.1); RHEUMATOID FACTOR QUANT < 10.0 IU/ML (<15.0); SODIUM LEVEL 137 MEQ/L (136-145); THYROID STIMULATING HORMONE 0.687 uIU/ML (0.358-3.740); TOTAL PROTEIN 6.8 GM/DL (6.4-8.2)
[2022-02-23 22:25] LABS: THYROID PEROXIDASE ANTIBODY < 28.0 U/ML (<60.0)
[2022-02-23 22:27] LABS: TOTAL T3 137.1 NG/DL (60.0-181.0)
[2022-02-24 13:08] LABS: ANTINUCLEAR ANTIBODIES DIRECT Negative (Negative); THRYOGLOBULIN ANTIBODIES (ATA) < 1.0 IU/mL (0.0-0.9); THYROGLOBULIN QUANTITATIVE 6.3 ng/mL (1.5-38.5)
[2022-02-25 02:07] LABS: TRYPTASE 3.2 ug/L (2.2-13.2)
== END ==
LOC: M LAB 10:10
PROVIDERS: ATTEND Allergy & Immunology Allergy
DX: L50.3 Dermatographic urticaria (principal)

== ENCOUNTER → 2022-06-21 | Outpatient (CLI) | payer BC | LOC: M RAD 16:02 | PROVIDERS: ATTEND Physician Assistant | DX: E04.9 Nontoxic goiter, unspecified (principal) ==

== ENCOUNTER → 2022-11-04 | Outpatient (CLI) | payer BC ==
[~2022-11-04] MED LIST changes: -ALBU20IN INH; +ALBU5SOL7 INH
[2022-11-04 15:57] LABS: BASO # 0.1 10^3/uL (0.0-0.2); BASO % 0.8 % (0.0-1.0); EOS # 0.1 10^3/uL (0.0-0.5); EOS % 0.8 % (0.0-3.0); HEMOGLOBIN 15.5 g/dl (12.0-15.5); LYMPH # 2.6 10^3/uL (1.5-5.0); LYMPH % 35.9 % (24.0-44.0); MEAN CORPUSCULAR VOLUME 90.9 fl (80.0-96.0); MONO # 0.5 10^3/uL (0.0-0.8); MONO % 6.6 % (2.0-8.0); NEUTROPHILS % 55.5 % (36.0-66.0); PLATELET COUNT, AUTOMATED 347 10^3/uL (150-450); RED BLOOD COUNT 5.17 10^6/uL (4.00-5.40); WHITE BLOOD COUNT 7.2 10^3/uL (4.0-10.0)
[2022-11-04 16:22] LABS: ALBUMIN 4.3 G/DL (3.2-5.2); ALKALINE PHOSPHATASE 77 U/L (46-116); ALT/SGPT 31 U/L (7.0-40); AST/SGOT 16 U/L (<34); BILIRUBIN,TOTAL 0.8 MG/DL (0.3-1.2); BLOOD UREA NITROGEN 8 MG/DL (9-23); CARBON DIOXIDE LEVEL 28 MMOL/L (20-31); CHLORIDE LEVEL 105 MMOL/L (98-107); CHOLESTEROL LEVEL 161 MG/DL (<200); CHOLESTEROL RISK RATIO 3.47 (<5); CREATININE FOR GFR 0.65 MG/DL (0.55-1.30); GLOMERULAR FILTRATION RATE > 60.0 (>60); GLUCOSE, FASTING 90 MG/DL (60-100); HDL CHOLESTEROL 46.3 MG/DL (>40); LDL CHOLESTEROL 96.7 MG/DL (<100); NON-HDL-C 114.7 MG/DL; POTASSIUM SERUM 4.6 MMOL/L (3.5-5.1); SODIUM LEVEL 138 MMOL/L (136-145); TOTAL PROTEIN 7.1 G/DL (5.7-8.2); TRIGLYCERIDES LEVEL 90 MG/DL (<150)
[2022-11-04 16:24] LABS: THYROID STIMULATING HORMONE 0.833 uIU/ML (0.55-4.78)
[2022-11-04 16:25] LABS: TOTAL 25(OH) VITAMIN D 23.2 NG/ML (20.0-100.0); VITAMIN B12 LEVEL 431 PG/ML (211-911)
[2022-11-04 17:33] LABS: HEMOGLOBIN A1c 5.2 % (4.0-6.0)
== END ==
LOC: M PLALAB 12:37
PROVIDERS: ATTEND Physician Assistant
DX: E55.9 Vitamin D deficiency, unspecified (principal); J30.89 Other allergic rhinitis; J45.20 Mild intermittent asthma, uncomplicated; K21.9 Gastro-esophageal reflux disease without esophagitis; F41.1 Generalized anxiety disorder; G35 Multiple sclerosis; K90.9 Intestinal malabsorption, unspecified; E04.9 Nontoxic goiter, unspecified; R01.1 Cardiac murmur, unspecified; Z13.220 Encounter for screening for lipoid disorders; Z13.1 Encounter for screening for diabetes mellitus; E66.01 Morbid (severe) obesity due to excess calories; Z68.41 Body mass index [BMI] 40.0-44.9, adult

== ENCOUNTER → 2023-01-26 | Outpatient (CLI) | payer BC | LOC: M PLAIMG 14:39 | PROVIDERS: ATTEND Physician Assistant | DX: S89.92XA Unspecified injury of left lower leg, initial encounter (principal); Y93.9 Activity, unspecified; Y92.9 Unspecified place or not applicable ==

== ENCOUNTER → 2023-02-10 | Outpatient (CLI) | payer BC | LOC: M PLAIMG 08:40 | PROVIDERS: ATTEND Physician Assistant | DX: M17.11 Unilateral primary osteoarthritis, right knee (principal) ==

== ENCOUNTER → 2023-02-27 | Outpatient (REF) | payer BC | LOC: M SFHCWAGY 17:57 | PROVIDERS: ATTEND Nurse Practitioner Family | DX: Z12.4 Encounter for screening for malignant neoplasm of cervix (principal) ==

== ENCOUNTER → 2023-03-08 | Outpatient (CLI) | payer BC | LOC: M WHC 07:26 | PROVIDERS: ATTEND Nurse Practitioner Family | DX: N93.9 Abnormal uterine and vaginal bleeding, unspecified (principal) ==

== ENCOUNTER → 2023-05-29 | Outpatient (CLI) | payer BC | LOC: M RAD 16:32 | PROVIDERS: ATTEND Physician Assistant | DX: R63.5 Abnormal weight gain (principal); E04.9 Nontoxic goiter, unspecified ==

== ENCOUNTER → 2023-08-15 | Outpatient (CLI) | payer BC ==
[~2023-08-15] MED LIST changes: +ACET-897 PO; +ALBU8.5H; +CALC-423 PO; -CALCCHW18 PO; +CYCL5TAB PO; +MELO15TA28 PO; +MULT-90 PO
[2023-08-15 10:18] LABS: BASO # 0.1 10^3/uL (0.0-0.2); BASO % 0.8 % (0.0-1.0); EOS # 0.1 10^3/uL (0.0-0.5); EOS % 0.7 % (0.0-3.0); HEMATOCRIT 44.9 % (36.0-47.0); HEMOGLOBIN 15.1 g/dl (12.0-15.5); LYMPH # 2.1 10^3/uL (1.5-5.0); LYMPH % 27.1 % (24.0-44.0); MEAN CORPUSCULAR HEMOGLOBIN 31.1 pg (27.0-33.0); MEAN CORPUSCULAR HGB CONC 33.6 g/dl (32.0-36.5); MEAN CORPUSCULAR VOLUME 92.6 fl (80.0-96.0); MONO # 0.5 10^3/uL (0.0-0.8); MONO % 6.5 % (2.0-8.0); NEUTROPHILS % 64.5 % (36.0-66.0); PLATELET COUNT, AUTOMATED 289 10^3/uL (150-450); RED BLOOD COUNT 4.85 10^6/uL (4.00-5.40); WHITE BLOOD COUNT 7.7 10^3/uL (4.0-10.0)
[2023-08-15 10:34] LABS: INR 1.01
[2023-08-15 10:48] LABS: ALBUMIN 3.9 G/DL (3.2-5.2); ALKALINE PHOSPHATASE 73 U/L (46-116); ALT/SGPT 25 U/L (7.0-40); AST/SGOT 11 U/L (<34); BILIRUBIN,TOTAL 0.7 MG/DL (0.3-1.2); BLOOD UREA NITROGEN 8 MG/DL (9-23); CALCIUM LEVEL 9.2 MG/DL (8.5-10.1); CARBON DIOXIDE LEVEL 28 MMOL/L (20-31); CHLORIDE LEVEL 109 MMOL/L (98-107); CREATININE FOR GFR 0.63 MG/DL (0.55-1.30); GLOMERULAR FILTRATION RATE > 60.0 (>60); GLUCOSE, FASTING 95 MG/DL (60-100); POTASSIUM SERUM 4.5 MMOL/L (3.5-5.1); SODIUM LEVEL 139 MMOL/L (136-145); TOTAL PROTEIN 6.6 G/DL (5.7-8.2)
[2023-08-15 10:49] LABS: HEMOGLOBIN A1c 5.1 % (4.0-6.0)
[2023-08-15 10:50] LABS: FREE T4 1.14 NG/DL (0.89-1.76)
== END ==
LOC: M RAD 09:28
PROVIDERS: ATTEND Family Medicine
DX: N92.6 Irregular menstruation, unspecified (principal)

== ENCOUNTER 2023-08-23 09:41 | Observation (INO) | payer BC ==
[~2023-08-23] VITALS: Ht 162.6 cm; Wt 118.5 kg
[~2023-08-23 09:41] MED LIST changes: +HYDROmorphone HCL 2MG/ML 1ML VIAL As Ordered ONE; +fentaNYL 100 MCG/2 ML INJECTION As Ordered ONE
[2023-08-23] MEDS ORDERED: ONDANSETRON 4MG 2ML VIAL As Ordered ONE (09:42)
[2023-08-23] MEDS ORDERED: LIDOCAINE 2% 100MG/5ML SDV (FOR ANES.) As Ordered ONE (09:42)
[2023-08-23] MEDS ORDERED: SUGAMMADEX SODIUM 500 MG/5 ML VIAL (BRIDION) As Ordered ONE (09:42)
[2023-08-23] MEDS ORDERED: MIDAZOLAM INJ 2MG/2ML VIAL As Ordered ONE (09:42)
[2023-08-23] MEDS ORDERED: KETOROLAC 60MG 2ML VIAL As Ordered ONE (09:42)
[2023-08-23] MEDS ORDERED: propofoL 200 MG/20 ML VIAL As Ordered ONE (09:42)
[2023-08-23] MEDS ORDERED: ROCURONIUM BROMIDE 50MG/5ML VIAL As Ordered ONE (09:44)
[2023-08-23] MEDS ORDERED: LR 1,000 ML IV SCH ×2 (09:50→13:55)
[2023-08-23 10:30] LABS: HEMATOCRIT 45.6 % (36.0-47.0); HEMOGLOBIN 15.5 g/dl (12.0-15.5); MEAN CORPUSCULAR HEMOGLOBIN 31.1 pg (27.0-33.0); MEAN CORPUSCULAR VOLUME 91.4 fl (80.0-96.0); PLATELET COUNT, AUTOMATED 273 10^3/uL (150-450); RED BLOOD COUNT 4.99 10^6/uL (4.00-5.40); WHITE BLOOD COUNT 7.5 10^3/uL (4.0-10.0)
[2023-08-23] MEDS: ceFAZolin SOD 2 GM in IV 1 EA IV ONE (12:30)
[2023-08-23] MEDS ORDERED: ACETAMINOPHEN 1000MG 100ML IV BAG As Ordered ONE (12:45)
[2023-08-23] MEDS ORDERED: ONDANSETRON 4MG 2ML VIAL IV PRN (13:55)
[2023-08-23] MEDS ORDERED: HYDROMORPHONE HCL 0.5 MG/ 0.5 ML SYRINGE IV PRN (13:55)
[2023-08-23] MEDS ORDERED: fentaNYL 100 MCG/2 ML INJECTION IV PRN (13:55)
[2023-08-23] MEDS ORDERED: PERCOCET 5MG/325MG TAB PO PRN (14:40)
[2023-08-23] MEDS: oxyCODONE 5MG TAB PO PRN (14:40)
[2023-08-23] MEDS: LR 1,000 ML IV SCH (15:29)
[2023-08-23 15:30] VITALS: BP 124/63; TEMP 98.7; O2SAT 96
[2023-08-23] MEDS ORDERED: IBUP-1022 PO (15:53)
[2023-08-23] MEDS ORDERED: [UNRECOGNIZED DRUG - CODE] PO (15:54)
[2023-08-23 16:00] VITALS: BP 114/67; TEMP 98; O2SAT 96
[2023-08-23 16:30] VITALS: BP 120/69; TEMP 98.2; O2SAT 96
[2023-08-23 17:30] VITALS: BP 120/66; TEMP 97.5; O2SAT 98
[2023-08-23] MEDS: ONDANSETRON 4MG 2ML VIAL IV PRN (18:03)
[2023-08-23 18:30] VITALS: BP 123/57; TEMP 98.1; O2SAT 96
[2023-08-23] MEDS: DOCUSATE SODIUM 100MG CAPSULE PO SCH (19:47)
[2023-08-23] MEDS: KETOROLAC 30 MG/ML 1ML VIAL IV PRN (19:48)
[2023-08-23 20:00] VITALS: BP 112/59; TEMP 98.5; O2SAT 96
[2023-08-24] VITALS: BP 120/55; TEMP 97.5; O2SAT 95
[2023-08-24 04:00] VITALS: BP 127/62; TEMP 98.5; O2SAT 94
[2023-08-24 08:00] VITALS: BP 136/71; TEMP 98.5; O2SAT 97
== END 2023-08-24 12:20 | disposition home or self-care (01) ==
LOC: M SDC 09:41 → M ED INP 09:42 → M PED 15:25
PROVIDERS: ADMIT Specialist; ATTEND Specialist
DX: D25.9 Leiomyoma of uterus, unspecified (principal); K44.9 Diaphragmatic hernia without obstruction or gangrene; K58.8 Other irritable bowel syndrome; F41.9 Anxiety disorder, unspecified; Z79.51 Long term (current) use of inhaled steroids; K21.9 Gastro-esophageal reflux disease without esophagitis; G35 Multiple sclerosis; Z88.7 Allergy status to serum and vaccine; Z88.8 Allergy status to other drugs, medicaments and biological substances; Z91.011 Allergy to milk products; Z91.013 Allergy to seafood; E28.2 Polycystic ovarian syndrome
CPT/HCPCS: 36415; 58571; 81025; 85027; 86850; 86900; 86901; 88307; 96360; 96374; 96375; J0131; J0665; J0690; J1100; J1170; J1885; J2250; J2405; J3010; S2900

== ENCOUNTER → 2024-02-21 | Outpatient (REF) | payer BC ==
[~2024-02-21] MED LIST changes: -HYDROmorphone HCL 2MG/ML 1ML VIAL As Ordered ONE; +[UNRECOGNIZED DRUG - CODE] PO; -fentaNYL 100 MCG/2 ML INJECTION As Ordered ONE
== END ==
LOC: M LAB REF 18:09
PROVIDERS: ATTEND Physician Assistant
DX: R35.0 Frequency of micturition (principal)

== ENCOUNTER → 2024-02-28 | Outpatient (CLI) | payer BC ==
[2024-02-28 18:31] LABS: HEMOGLOBIN A1c 5.4 % (4.0-6.0)
[2024-02-28 18:49] LABS: FREE T4 1.27 NG/DL (0.89-1.76); THYROID STIMULATING HORMONE 0.556 uIU/ML (0.55-4.78)
== END ==
LOC: M PLALAB 15:43
PROVIDERS: ATTEND Nurse Practitioner Family
DX: R63.5 Abnormal weight gain (principal)

== ENCOUNTER → 2024-05-20 | Outpatient (CLI) | payer BC ==
[~2024-05-20] MED LIST changes: -CYCL5TAB PO; +CYCL5TAB4 PO
== END ==
LOC: M WUC 15:15
PROVIDERS: ATTEND Student in an Organized Health Care Education/Training Program
DX: M54.50 Low back pain, unspecified (principal)

== ENCOUNTER → 2024-06-03 | Outpatient (REF) | payer BC | LOC: M SFHCPLAZ 16:58 | PROVIDERS: ATTEND Nurse Practitioner Family | DX: R35.0 Frequency of micturition (principal) ==

== ENCOUNTER → 2024-06-04 | Outpatient (REF) | payer BC | LOC: M LAB REF 22:46 | PROVIDERS: ATTEND Nurse Practitioner Family | DX: R19.7 Diarrhea, unspecified (principal) ==

== ENCOUNTER → 2024-06-21 | Outpatient (CLI) | payer BC | LOC: M RAD 16:13 | PROVIDERS: ATTEND Nurse Practitioner Family | DX: E04.0 Nontoxic diffuse goiter (principal) ==

== ENCOUNTER 2024-07-25 09:01 | Emergency (ER) | payer BC ==
[~2024-07-25] VITALS: Ht 152.4 cm; Wt 119.0 kg
[2024-07-25] MEDS: dexAMETHasone 20MG/5ML VIAL IV ONE (10:18)
[2024-07-25] MEDS: FAMOTIDINE 20MG/2ML VIAL IVP ONE (10:18)
[2024-07-25] MEDS: diphenhydrAMINE 50MG/ML VIAL IV ONE (10:18)
[2024-07-25] MEDS ORDERED: DIPH50CA PO (11:46)
[2024-07-25] MEDS ORDERED: PRED10TA2 PO (11:46)
[2024-07-25 12:15] VITALS: BP 152/82
[2024-07-25 12:16] VITALS: TEMP 97.2; O2SAT 98
== END 2024-07-25 12:28 | disposition home or self-care (01) ==
LOC: M ED 09:01
DX: R21 Rash and other nonspecific skin eruption (principal); T36.0X5A Adverse effect of penicillins, initial encounter; G35 Multiple sclerosis; J45.909 Unspecified asthma, uncomplicated; E28.2 Polycystic ovarian syndrome; Z87.42 Personal history of other diseases of the female genital tract; Z88.7 Allergy status to serum and vaccine; Z88.2 Allergy status to sulfonamides; Z88.8 Allergy status to other drugs, medicaments and biological substances; Z91.013 Allergy to seafood; Z79.52 Long term (current) use of systemic steroids; Z79.1 Long term (current) use of non-steroidal anti-inflammatories (NSAID); Z79.899 Other long term (current) drug therapy
CPT/HCPCS: 96374; 99284; J1100; J1200; S0028

== ENCOUNTER 2024-08-20 20:24 | Emergency (ER) | payer BC ==
[~2024-08-20] VITALS: Ht 162.6 cm; Wt 120.1 kg
[~2024-08-20 20:24] MED LIST changes: +DIPH50CA PO; +PRED10TA2 PO
[2024-08-21 00:02] VITALS: BP 128/72; TEMP 96.7; O2SAT 97
== END 2024-08-21 00:25 | disposition home or self-care (01) ==
LOC: M ED 20:24
DX: L66.2 Folliculitis decalvans (principal); L23.9 Allergic contact dermatitis, unspecified cause; Z88.7 Allergy status to serum and vaccine; Z91.013 Allergy to seafood; Z91.011 Allergy to milk products; Z91.040 Latex allergy status; Z88.2 Allergy status to sulfonamides; Z88.8 Allergy status to other drugs, medicaments and biological substances; Z79.52 Long term (current) use of systemic steroids; Z79.1 Long term (current) use of non-steroidal anti-inflammatories (NSAID); Z79.899 Other long term (current) drug therapy

== ENCOUNTER → 2024-08-22 | Outpatient (REF) | payer BC ==
[2024-08-22 18:45] LABS: BASO % 0.2 % (0.0-1.0); EOS # 0.2 10^3/uL (0.0-0.5); EOS % 3.1 % (0.0-3.0); HEMATOCRIT 44.9 % (36.0-47.0); HEMOGLOBIN 15.2 g/dl (12.0-15.5); LYMPH # 1.8 10^3/uL (1.5-5.0); LYMPH % 34.3 % (24.0-44.0); MEAN CORPUSCULAR HEMOGLOBIN 30.4 pg (27.0-33.0); MEAN CORPUSCULAR HGB CONC 33.9 g/dl (32.0-36.5); MEAN CORPUSCULAR VOLUME 89.8 fl (80.0-96.0); MONO # 0.5 10^3/uL (0.0-0.8); MONO % 8.7 % (2.0-8.0); NEUTROPHILS # 2.8 10^3/uL (1.5-8.5); NEUTROPHILS % 53.5 % (36.0-66.0); PLATELET COUNT, AUTOMATED 318 10^3/uL (150-450); WHITE BLOOD COUNT 5.2 10^3/uL (4.0-10.0)
== END ==
LOC: M SFHCPLAZ 14:41
PROVIDERS: ATTEND Nurse Practitioner Family
DX: T78.40XA Allergy, unspecified, initial encounter (principal)

== ENCOUNTER → 2024-09-28 | Outpatient (CLI) | payer BC ==
[2024-09-28 09:21] LABS: EOS # 0.1 10^3/uL (0.0-0.5); EOS % 0.7 % (0.0-3.0); HEMOGLOBIN 15.1 g/dl (12.0-15.5); LYMPH # 1.9 10^3/uL (1.5-5.0); LYMPH % 27.7 % (24.0-44.0); MEAN CORPUSCULAR HEMOGLOBIN 31.1 pg (27.0-33.0); MEAN CORPUSCULAR HGB CONC 33.6 g/dl (32.0-36.5); MEAN CORPUSCULAR VOLUME 92.6 fl (80.0-96.0); MONO # 0.5 10^3/uL (0.0-0.8); MONO % 7.9 % (2.0-8.0); NEUTROPHILS # 4.3 10^3/uL (1.5-8.5); NEUTROPHILS % 63.4 % (36.0-66.0); PLATELET COUNT, AUTOMATED 291 10^3/uL (150-450); RED BLOOD COUNT 4.86 10^6/uL (4.00-5.40); WHITE BLOOD COUNT 6.7 10^3/uL (4.0-10.0)
[2024-09-28 09:30] LABS: ERYTHROCYTE SEDIMENTATION RATE 16 mm/hr (0-20)
[2024-09-28 09:39] LABS: URIC ACID 6.3 MG/DL (3.1-7.8)
[2024-09-28 09:43] LABS: ALBUMIN 3.9 G/DL (3.2-5.2); ALKALINE PHOSPHATASE 90 U/L (35-104); ALT/SGPT 43 U/L (7.0-40); AST/SGOT 22 U/L (<34); BILIRUBIN,TOTAL 0.5 MG/DL (0.3-1.2); BLOOD UREA NITROGEN 11 MG/DL (9-23); CALCIUM LEVEL 9.4 MG/DL (8.5-10.1); CARBON DIOXIDE LEVEL 30 MMOL/L (20-31); CHLORIDE LEVEL 107 MMOL/L (98-107); GLOMERULAR FILTRATION RATE > 90.0 (>60); GLUCOSE, FASTING 100 MG/DL (60-100); POTASSIUM SERUM 4.5 MMOL/L (3.5-5.1); SODIUM LEVEL 146 MMOL/L (136-145); TOTAL PROTEIN 6.8 G/DL (5.7-8.2)
[2024-09-28 09:44] LABS: RHEUMATOID FACTOR QUANT 8.3 IU/ML (<14)
[2024-10-01 12:12] LABS: ANA SCREEN, IFA NEGATIVE (NEGATIVE)
== END ==
LOC: M LAB 08:30
PROVIDERS: ATTEND Nurse Practitioner Family
DX: T78.40XA Allergy, unspecified, initial encounter (principal)

== ENCOUNTER → 2024-12-26 | Outpatient (CLI) | payer BC ==
[~2024-12-26] MED LIST changes: +CETI5TA PO; +DIPH-435 PO
[2024-12-26 17:07] LABS: ALT/SGPT 54 U/L (7.0-40); AST/SGOT 30 U/L (<34); CALCIUM LEVEL 9.0 MG/DL (8.5-10.1); CARBON DIOXIDE LEVEL 28 MMOL/L (20-31); CHLORIDE LEVEL 105 MMOL/L (98-107); CREATININE FOR GFR 0.67 MG/DL (0.55-1.30); GLOMERULAR FILTRATION RATE > 90.0 (>60); POTASSIUM SERUM 4.1 MMOL/L (3.5-5.1); SODIUM LEVEL 144 MMOL/L (136-145)
== END ==
LOC: M LAB 16:13
PROVIDERS: ATTEND Nurse Practitioner Family
DX: U07.1 COVID-19 (principal)

== ENCOUNTER → 2025-03-21 | Outpatient (REF) | payer BC ==
[~2025-03-21] MED LIST changes: -DIPH50CA PO; +DIPH50CA31 PO; -IBUP-1022 PO; +IBUP600T42 PO
[2025-03-21 15:52] LABS: CPK CREATINE PHOSPHOKINASE 111.0 U/L (34-145); MAGNESIUM LEVEL 1.7 MG/DL (1.8-2.4); PHOSPHORUS LEVEL 4.0 MG/DL (2.5-4.9)
[2025-03-21 15:54] LABS: TOTAL 25(OH) VITAMIN D 30.7 NG/ML (20.0-100.0); VITAMIN B12 LEVEL 289.0 PG/ML (211-911)
[2025-03-25 11:22] LABS: C1q BINDING IMMUNE COMPLEX < 1.2 mcg Eq/mL (< OR = 25.1)
== END ==
LOC: M SFHCRHEU 10:24
PROVIDERS: ATTEND Internal Medicine
DX: M79.10 Myalgia, unspecified site (principal); L50.1 Idiopathic urticaria